=== PATIENT | male | born 1950 | race Caucasian/White ===

== ENCOUNTER 2021-06-16 13:24 | Emergency (ER) | payer MEDICARE, SELFPAY ==
[2021-06-16 13:26] VITALS: BP 105/77; PULSE 110; RESP 12; TEMP 35.9; O2SAT 96; BMI 28.1
--- NOTE | 2021-06-16 13:30 | EKG12_ITS ---
Test Reason : SYNCOPE Blood Pressure : / mmHG Vent. Rate : 108 BPM Atrial Rate : 108 BPM P-R Int : 150 ms QRS Dur : 102 ms QT Int : 334 ms P-R-T Axes : 065 058 041 degrees QTc Int : 447 ms Sinus tachycardia with occasional Premature ventricular complexes Otherwise normal ECG Confirmed by HAMIDA REYES, KAREN ([id number]), editor department TOSHIA GAMBOA ([id number]) on 06/18/2021 9:45:13 AM Referred By: GIANNI/ARAM Confirmed By:KAREN MEI MD
--- NOTE | 2021-06-16 14:48 | RAD_ITS ---
STUDY: X-RAY - RIGHT FOOT CLINICAL: Male, 70 years old. Fall, injury TECHNIQUE: 3 view(s) of the foot. COMPARISON: None. FINDINGS: There is abnormal alignment between the tarsal and metatarsal rows. There is unusual overlap. There is irregular appearance of the second and third proximal metatarsals. RAD/Foot min 3 Views IMPRESSION: 1. 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 Acute or subacute injury/fracture. Refer to definitive imaging with CT and orthopedic evaluation. Electronically Signed: Charis Foy MD at 16:31 EDT Tel , Service support ,
--- NOTE | 2021-06-16 14:49 | RAD_ITS ---
STUDY: X-RAY CHEST REASON FOR EXAM: Male, 70 years old. Syncope dizziness TECHNIQUE: Frontal and lateral views of the chest COMPARISON: None. FINDINGS: The lungs are clear and expanded. There is no demonstrated pleural abnormality. Normal size heart. Normal mediastinum and radha. Normal visualized pulmonary arteries. Normal visualized aortic arch and descending thoracic aorta. Normal visualized thoracic spine. Normal visualized ribs, clavicles, and shoulders. There is no demonstrated abnormality of the visualized soft tissue structures of the upper abdomen. RAD/Chest PA and Lateral IMPRESSION: Normal x-ray examination of the chest. Electronically Signed: Charis Foy MD at 16:36 EDT Tel , Service support ,
[2021-06-16 15:06] LABS: Absolute Lymphocyte Count 3.75 X10^3/uL (0.83-4.51); Absolute Neutrophil Count 9.8 X10^3/uL (2.0-7.7); Basophil# 0.09 X10^3/uL; Basophil% 0.6 % (0-1); Eosinophil# 0.22 X10^3/uL; Eosinophils% 1.5 % (0-5); Hematocrit 43.8 % (40-54); Hemoglobin 15.2 g/dL (13.0-16.5); Lymphocyte # 3.75 X10^3/ul (0.83-4.51); Lymphocyte % 25.4 % (19-41); Mean Corp Hgb Conc 34.7 g/dL (32-36); Mean Corpuscular Hgb 29.8 pg (27.0-32.0); Mean Corpuscular Volume 85.9 fL (80-94); Mean Platelet Vol. 10.7 fl (6.2-12.0); Monocyte# 0.74 X10^3/uL; NRBC Flagged by Analyzer 0 % (0-5); Neutrophil # 9.83 X10^3/uL (2.7-7.7); Neutrophil % 66.7 % (47-70); Platelet Count 232 K/mm3 (150-450); RBC Distribution Width CV 12.5 % (11.6-14.6); White Blood Count 14.8 K/mm3 (4.4-11.0)
[2021-06-16 15:20] LABS: Anion Gap 6 (5-15); BUN 21 mg/dL (7-18); BUN/Creat Ratio 11.5 RATIO (10-20); Calcium,Total 10.2 mg/dL (8.5-10.1); Chloride 104 mmol/L (98-107); Creatinine, Serum 1.83 mg/dL (0.70-1.30); EST Glomerular Filtration Rate 39 mL/min (>60); Est Glom Filt Rate - Afr Amer 47 mL/min (>60); Estimated Creatinine Clearance 42.45 ml/min; Glucose 152 mg/dL (74-106); Potassium 3.5 mmol/L (3.5-5.1); Sodium Level 135 mmol/L (136-145); Troponin-I HS 24.2 pg/mL (3.0-78.5)
[2021-06-16] MEDS: 0.9% Normal Saline 1,000 ML 1000 ML IV (15:21)
[2021-06-16 15:22] VITALS: BP 107/64; BP 107/65; BP 118/71; PULSE 103; PULSE 109; PULSE 133
--- NOTE | 2021-06-16 15:33 | EX.ED.DYSGE1 ---
HPI History of Present Illness Chief Complaint: Dizziness Informant: patient and family Narrative Narrative: Patient is a 70-year-old male with a past medical history of hypertension who presents to the emergency department for syncopal episode today. He states that he was out working and did not eat this morning. Whenever he got up from sitting he walked to the kitchen to make food. He felt very lightheaded and passing out. Family was present for this. They did help him to the ground. Patient did injure his right foot but did not strike his head. Family states this lasted for a total of 5 minutes. It has never had this happen before. He did not bite his tongue or cheek and did not become incontinent. He did feel lightheaded but denied any chest pain, shortness of breath or heart palpitations through any of this. Denies any recent illness including any fever/chills. He has not been nauseous, vomiting or having diarrhea. No urinary symptoms. No leg swelling or calf pain. At time of arrival his only complaint is right foot pain. He denies any lightheadedness, headache or vision changes at this time. No weakness or loss of sensation in any extremity. [facility] Medical History (Updated 06/16/21 @ 18:[address] Justo Hutson DO) Hypertension Home Medications aspirin 81 mg PO DAILY 06/16/21 [History Last Taken Unknown] diltiazem HCl [DILT-XR] 240 mg PO BID 06/16/21 [History Last Taken Unknown] losartan 100 mg PO DAILY 06/16/21 [History Last Taken Unknown] niacin 1,000 mg PO QHS 06/16/21 [History Last Taken Unknown] sildenafil 100 mg PO PRN PRN 06/16/21 [History Last Taken Unknown] terazosin 10 mg PO DAILY 06/16/21 [History Last Taken Unknown] Allergy/AdvReac Type Severity Reaction Status Date / Time No Known Allergies Allergy Verified 06/16/21 13:26 Social History Smoking Status: Current some day smoker tobacco type: cigarettes ROS ROS ED Constitutional Constitutional ED: Denies chills or fever(s) Eyes Eyes: Denies change in vision ENT ENT ED: Denies epistaxis or rhinorrhea Cardiovascular Cardiovascular: Denies chest pain or palpitations Respiratory/Chest Respiratory/Chest: Denies cough, dyspnea or dyspnea on exertion Gastrointestinal Gastrointestinal: Denies abdominal pain, diarrhea, nausea or vomiting Genitourinary Genitourinary ED: Denies dysuria, hematuria or urinary frequency Musculoskeletal Musculoskeletal: Denies back pain or neck pain Integumentary Denies rash Neurologic Neurologic: Denies dizziness, headache(s) or weakness EXAM Physical Exam Const Vital Signs: 06/16/21 13:26 06/16/21 13:30 06/16/21 15:22 Temperature 96.7 F L Temperature Source Temporal Pulse Rate 110 H Pulse Rate [Lying] 103 H Pulse Rate [Sitting] 109 H Pulse Rate [Standing] 133 H Respiratory Rate 12 Respiratory Effort Normal Non-Labored Respiratory Pattern Normal Blood Pressure 105/77 Blood Pressure [Lying] 107/65 Blood Pressure [Sitting] 118/71 Blood Pressure [Standing] 107/64 Blood Pressure Mean 86 Blood Pressure Mean [Lying] 79 Blood Pressure Mean [Sitting] 86 Blood Pressure Mean [Standing] 78 Pulse Ox 96 Oxygen Delivery Method Room Air 06/16/21 17:20 06/16/21 18:26 Temperature Temperature Source Pulse Rate 94 88 Pulse Rate [Lying] Pulse Rate [Sitting] Pulse Rate [Standing] Respiratory Rate 18 17 Respiratory Effort Respiratory Pattern Blood Pressure 137/81 H 133/74 H Blood Pressure [Lying] Blood Pressure [Sitting] Blood Pressure [Standing] Blood Pressure Mean 99 Blood Pressure Mean [Lying] Blood Pressure Mean [Sitting] Blood Pressure Mean [Standing] Pulse Ox 97 97 Oxygen Delivery Method Room Air Positive well nourished and well developed General Appearance ED: well developed and NAD HEENT Reports normocephalic, head/scalp atraumatic and moist mucous membranes Eyes PERRL and EOMs intact bilaterally Neck no lymphadenopathy and supple General: Negative for tenderness Chest Wall inspection of chest normal Resp normal respiratory effort and clear to auscultation bilaterally Auscultation: Negative for rales, rhonchi or wheezes Cardio regular rhythm and no murmurs Rate: tachycardic GI normal to inspection, nondistended, normoactive bowel sounds and non-tender Palpation: soft; Negative for guarding or rebound tenderness present Back/Spine no CVA tenderness Extremity Extremity Narrative: There does appear to be swelling, tenderness to right dorsal foot. Neurovascular intact. No tenderness over the ankle. Neuro oriented x3, CN's II-XII intact bilaterally and no sensory deficits noted Sensorium / Orientation: alert Motor Exam: strength 5/5 throughout Psych mental status grossly normal Skin no rashes or lesions noted MDM MDM MDM Narrative Medical decision making narrative: Patient presents to the emergency department for right foot pain. He also had a syncopal episode. On arrival to the emerge department he is tachycardic but otherwise normal vital signs. Will check EKG, chest x-ray, basic lab work. Patient's work-up for the syncopal episode did not reveal any significant acute abnormality. He does have a mild leukocytosis. His troponin is within normal limits. His creatinine is mildly elevated. His heart rate was high on arrival but with IV fluids it did return to the mid 90s. He is feeling much better. He is up ambulating around without putting pressure on the foot without difficulty. No repeat symptoms. He does well to be discharged home. X-ray of the foot did reveal possible fracture so CT scan was recommended. This was performed which showed significant fractures, subluxations and Lisfranc ligament injury. I did discuss the case with the on-call elementary school science teacher, Dr. Taylor. She recommended placing the patient in a splint and to have him call the office tomorrow for evaluation. He will likely need surgery. Patient was placed in a posterior Ortho-Glass splint. He is neurovascular intact pre and post splinting. Patient is to be nonweightbearing. He is given crutches. I did offer hospitalization given the syncopal episode but patient is adamant on wanting to go home. This time I have low concern for ACS, aortic catastrophe or PE. He is feeling much better after IV fluids and likely this is due to dehydration. Believe that this is an acceptable plan. He is to contact his PCP. If he develops any repeat lightheaded, syncope, chest pain, shortness of breath he needs to return back to the ED immediately for further evaluation. Lab Data Labs: Laboratory Results - last 24 hr 06/16/21 06/16/21 13:37 13:37 WBC 14.8 H RBC 5.10 Hgb 15.2 Hct 43.8 MCV 85.9 MCH 29.8 MCHC 34.7 RDW Std Deviation 39.0 RDW Coeff of Nikolas 12.5 Plt Count 232 MPV 10.7 Immature Gran % (Auto) 0.800 Neut % (Auto) 66.7 Lymph % (Auto) 25.4 [place] % (Auto) 5.0 Eos % (Auto) 1.5 Baso % (Auto) 0.6 Absolute Neuts (auto) 9.8 H Absolute Lymphs (auto) 3.75 Nucleated RBC % 0 Sodium 135 L Potassium 3.5 Chloride 104 Carbon Dioxide 25.0 Anion Gap 6 BUN 21 H Creatinine 1.83 H Estim Creat Clear Calc 42.45 Est GFR (MDRD) Af Amer 47 L Est GFR (MDRD) Non-Af 39 L BUN/Creatinine Ratio 11.5 Glucose 152 H Calcium 10.2 H Troponin I High Sens 24.2 Radiography Diagnostic Testing: Radiology Impression Foot X-Ray 06/16/21 14:48 IMPRESSION: 1. 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 Acute or subacute injury/fracture. Refer to definitive imaging with CT and orthopedic evaluation. Electronically Signed: Charis Foy MD at 16:31 EDT Tel , Service support , Chest X-Ray 06/16/21 14:49 IMPRESSION: Normal x-ray examination of the chest. Electronically Signed: Charis Foy MD at 16:36 EDT Tel , Service support , Lower Extremity CT 06/16/21 16:38 IMPRESSION: 1. Second-fourth metatarsal base fractures with articular surface involvement. 2. First tarsal-metatarsal articulation subluxation. 3. Lateral subluxation of the third tarsal-metatarsal articulation. 4. High likelihood of Lisfranc ligament injury. 5. Nondisplaced (lateral) cuboid fracture. Electronically Signed: Mil Clay MD ([place]) at 17:17 EDT , Service support , Chest x-ray clear without any acute cardiopulmonary abnormality. Interpreted by myself. Agree with radiologist interpretation. EKG Initial EKG: Attestation: I personally reviewed and interpreted this EKG as follows: (Rate of 108 bpm in sinus tachycardia. 1 PVC present. Otherwise normal intervals. Normal axis. No significant ST elevations or depressions. No T wave abnormalities.) Discharge Plan Triage Chief Complaint: Dizziness ED Provider: Justo Hutson Dx/Rx/DC Orders Clinical Impression: Foot fracture, Subluxation of foot joint, Lisfranc fracture, Episode of syncope Instructions: ED Fracture, Foot, ED Hypotension, Orthostatic Prescriptions: No Action niacin 1,000 mg Tablet Extended Release 24 Hr 1,000 mg PO QHS RF: 0 diltiazem HCl [DILT-XR] 240 mg Capsule,Ext.Rel 24h Degradable 240 mg PO BID RF: 0 sildenafil 100 mg Tablet 100 mg PO PRN PRN (Reason: Erectile Dysfunction) RF: 0 terazosin 10 mg Tablet 10 mg PO DAILY RF: 0 aspirin 81 mg Tablet 81 mg PO DAILY RF: 0 losartan 100 mg Tablet 100 mg PO DAILY RF: 0 Primary Care Provider: Terrance Cee Referrals: Terrance Cee DO [Primary Care Provider] - 1 Day Felicity Taylor DPM [STAFF PHYSICIAN] - 1 Day Disposition Disposition: Home, Self Care Discharge Date/Time: 06/16/21 18:38
--- NOTE | 2021-06-16 16:38 | CT_ITS ---
STUDY: CT RIGHT FOOT REASON FOR EXAM: Male, 70 years old. Abnormal foot XR RADIATION DOSAGE (If Supplied By Facility): CTDIvol = ( 15.35 ) mGy, DLP = ( 434.36 ) mGycm TECHNIQUE: Thin section transaxial imaging of the foot was obtained, with sagittal and coronal reconstructed images. Individualized dose optimization techniques were used for this CT. COMPARISON: Today FINDINGS: Nondisplaced fracture along the lateral cuboid identified on image 20 of series 601. There is anterior subluxation of the medial cuneiform in relation to the first metatarsal (8 mm image 33 series 601). Tiny osseous densities are adjacent to the base of the first metatarsal (same image). Mildly comminuted fracture at the base of the second metatarsal with intra-articular involvement. Small fracture fragment between the first and second metatarsals (image 50 series 3). There is also a tiny fracture along the plantar surface of the third metatarsal base (image 57 series 3, image 25 series 601). An obliquely oriented fracture of the medial fourth metatarsal base extends to the articular surface with approximately 2.6 mm of displacement (image 52 series 602). Lateral subluxation of the third metatarsal in relation to the middle cuneiform (4 mm image 20 series 601). Normal metatarsophalangeal joint of the great toe. Normal tibial and fibular sesamoid bones. Normal interphalangeal joint of the great toe. Normal phalanges of the great toe. Normal second through fifth metatarsophalangeal joints. Normal interphalangeal joints and phalanges of the lesser toes. Soft tissue swelling particularly over the dorsal foot overlying the fractures. CT/Extremity Lower without Contra IMPRESSION: 1. Second-fourth metatarsal base fractures with articular surface involvement. 2. First tarsal-metatarsal articulation subluxation. 3. Lateral subluxation of the third tarsal-metatarsal articulation. 4. High likelihood of Lisfranc ligament injury. 5. Nondisplaced (lateral) cuboid fracture. Electronically Signed: Mil Clay MD ([place]) at 17:17 EDT , Service support ,
[2021-06-16 17:20] VITALS: BP 137/81; PULSE 94; RESP 18; O2SAT 97
[2021-06-16 18:26] VITALS: BP 133/74; PULSE 88; RESP 17; O2SAT 97
== END 2021-06-16 18:38 | disposition home or self-care (01) ==
PROVIDERS: Emergency Provider Emergency Medicine; PCP Family Medicine
DX: S92.321A Displaced fracture of second metatarsal bone, right foot, initial encounter for closed fracture (principal); S92.331A Displaced fracture of third metatarsal bone, right foot, initial encounter for closed fracture; S92.341A Displaced fracture of fourth metatarsal bone, right foot, initial encounter for closed fracture; S93.321A Subluxation of tarsometatarsal joint of right foot, initial encounter; R55 Syncope and collapse; W19.XXXA Unspecified fall, initial encounter; Y93.9 Activity, unspecified; Y92.9 Unspecified place or not applicable; I49.3 Ventricular premature depolarization; I10 Essential (primary) hypertension; Z79.82 Long term (current) use of aspirin; Z79.899 Other long term (current) drug therapy; F17.210 Nicotine dependence, cigarettes, uncomplicated
CPT/HCPCS: 29515; 71046; 73630; 73700; 80048; 84484; 85025; 93005; 96360; 96361; 99285; J7030; A4216

== ENCOUNTER → 2021-07-08 16:42 | Outpatient (CLI) | payer MEDICARE, SELFPAY ==
[2021-06-16 13:26] VITALS: BMI 28.1
[2021-07-08 18:04] LABS: Absolute Lymphocyte Count 2.78 X10^3/uL (0.83-4.51); Absolute Neutrophil Count 9.7 X10^3/uL (2.0-7.7); Basophil# 0.07 X10^3/uL; Basophil% 0.5 % (0-1); Eosinophil# 0.24 X10^3/uL; Eosinophils% 1.7 % (0-5); Hematocrit 42.6 % (40-54); Hemoglobin 14.6 g/dL (13.0-16.5); Lymphocyte # 2.78 X10^3/ul (0.83-4.51); Lymphocyte % 20.2 % (19-41); Mean Corp Hgb Conc 34.3 g/dL (32-36); Mean Corpuscular Hgb 29.3 pg (27.0-32.0); Mean Corpuscular Volume 85.5 fL (80-94); Mean Platelet Vol. 10.3 fl (6.2-12.0); Monocyte# 0.76 X10^3/uL; Monocyte% 5.5 % (0-10); NRBC Flagged by Analyzer 0 % (0-5); Neutrophil # 9.69 X10^3/uL (2.7-7.7); Neutrophil % 70.6 % (47-70); Platelet Count 274 K/mm3 (150-450); RBC Distribution Width CV 12.6 % (11.6-14.6); RBC Distribution Width SD 38.8 fl (35.1-43.9); Red Blood Count 4.98 M/mm3 (4.6-6.2); White Blood Count 13.7 K/mm3 (4.4-11.0)
[2021-07-08 18:31] LABS: ALB/GLOB Ratio 0.8 RATIO (0.9-2.4); AST(SGOT) 16 U/L (15-37); Alanine Aminotransfer ALT/SGPT 42 U/L (16-61); Albumin, Serum 3.6 g/dL (3.2-5.0); Alkaline Phosphatase 100 U/L (45-117); Anion Gap 9 (5-15); BUN 22 mg/dL (7-18); BUN/Creat Ratio 16.5 RATIO (10-20); Calcium,Total 10.1 mg/dL (8.5-10.1); Chloride 100 mmol/L (98-107); Creatinine, Serum 1.33 mg/dL (0.70-1.30); EST Glomerular Filtration Rate 56 mL/min (>60); Est Glom Filt Rate - Afr Amer 68 mL/min (>60); Globulin 4.6 g/dL (2.2-4.2); Glucose 108 mg/dL (74-106); Potassium 3.7 mmol/L (3.5-5.1); Protein, Total 8.2 g/dL (6.4-8.2); Sodium Level 133 mmol/L (136-145)
== END ==
PROVIDERS: PCP Family Medicine; Referring Provider Family Medicine; Visit Provider Family Medicine
DX: Z01.818 Encounter for other preprocedural examination (principal)
CPT/HCPCS: 36415; 80053; 85025

== ENCOUNTER → 2021-07-19 06:11 | Outpatient (CLI) | payer MEDICARE, SELFPAY ==
--- NOTE | 2021-07-19 14:43 | STRESSREP ---
Stress Test Report From a allergic myocardial perfusion stress test. 70-year-old man with a history of syncope for preoperative evaluation for foot surgery. Stress protocol: Resting EKG demonstrates normal sinus rhythm with a rate of 80 bpm normal intervals are noted resting blood pressure is 138/82 mmHg. 0.4 mg of regadenoson was infused per usual protocol followed by rapid intravenous saline flush injection continuous EKG monitoring was performed. The maximum heart rate was 95 bpm which was 63% of maximum predicted heart rate the maximum workload was 1 metabolic equivalent. At rest there were no ST or T wave changes noted to suggest abnormal flow reserve and at peak infusion nonspecific ST changes were noted with did not meet the criteria for ischemia. No clinical angina was noted. The final blood pressure was 136/70 mmHg. Myocardial perfusion protocol. 10.0 mCi of technetium 99m sestamibi was injected at rest. 0.4 mg of regadenoson was infused per usual protocol and at peak infusion 33.0 mCi of technetium 99m sestamibi was injected stress images were obtained stress and rest images were reconstructed in comparing the short axis vertical long and horizontal long axis. Gated images were also obtained Perfusion SPECT analysis: Review of the stress images demonstrate normal uptake of tracer noted in all areas of the myocardium. The resting images also demonstrate normal uptake of tracer noted in all areas of the myocardium. No areas of reversibility are noted to suggest ischemia. No infarction is noted. Conclusion: Normal pharmacologic myocardial perfusion stress test. Preserved ejection fraction. Gated SPECT analysis: The gated ejection fraction is 69%
== END ==
PROVIDERS: PCP Family Medicine; Referring Provider Family Medicine; Visit Provider Family Medicine
DX: R55 Syncope and collapse (principal); R94.31 Abnormal electrocardiogram [ECG] [EKG]
CPT/HCPCS: 78452; 93017; A9500; A4216; J2785

== ENCOUNTER 2021-07-22 11:35 | Day surgery (SDC) | payer MEDICARE, SELFPAY ==
[2021-07-22 12:07] VITALS: BP 147/80; PULSE 94; RESP 16; TEMP 36.4; O2SAT 97; BMI 27.1
[2021-07-22] MEDS: Lactated Ringers 1,000 ML 100 ML IV ×2 (12:13→18:27)
[2021-07-22] MEDS: Bacitracin 500 UNITS/GM PACKET (12:33)
--- NOTE | 2021-07-22 12:43 | EX.PCM.DISCH ---
Discharge Instructions Diet Discharge Diet: No restrictions Activity Discharge Activity: Use Crutches and - (Or other assistive devices) Ice area for (Minutes): 15 Weight Bearing Status: No weight bearing Keep extremity elevated above heart level: Operative Extremity Additional Activity Instructions:: Rest, ice, elevate operative extremity Dressing / Incision Call your doctor if your incision/area has: Sudden Increased Bleeding, Increased Pain/ Swelling, Foul Smelling Discharge and Swelling at the incision site Call your doctor if you observe: Fever of 101 or Higher, Numbness or Tingling, Shortness of breath, Chest pain, Calf discomfort and Uncontrolled pain Change Dressing in: leave in place till F/U Remove Dressing in: do not remove dressing Cleanse incision/area with: Do not get Incision Wet Follow Up Care Please Follow Up With: Felicity Taylor DPM When: 1 week Test Results: Test results from this visit will be discussed in further detail at your follow-up appointment, if applicable. Discharge Plan Admission Primary Reason for Your Visit: Right foot fractures Attending Provider: Felicity Taylor Primary Care Provider: Terrance Cee Discharge Orders/Prescriptions Prescriptions: New ondansetron HCl [Zofran] 4 MG tablet 4 mg PO Q6H PRN PRN (Reason: Nausea) Qty: 14 RF: 1 oxycodone-acetaminophen 5-325 mg tablet 1 tab PO Q8H PRN (Reason: pain) 7 Days Qty: 28 RF: 0 Continued niacin 1,000 mg Tablet Extended Release 24 Hr 1,000 mg PO QHS RF: 0 diltiazem HCl [DILT-XR] 240 mg Capsule,Ext.Rel 24h Degradable 240 mg PO BID RF: 0 sildenafil 100 mg Tablet 100 mg PO PRN PRN (Reason: Erectile Dysfunction) RF: 0 terazosin 10 mg Tablet 10 mg PO DAILY RF: 0 aspirin 81 mg Tablet 81 mg PO DAILY RF: 0 losartan 100 mg Tablet 100 mg PO DAILY RF: 0 Other Ambulatory Orders: Durable Medical Equipment (Routine) Location: None Selected Ordered By: Dr. Felicity Taylor Referrals / Follow Up: Terrance Cee DO [Primary Care Provider] - Disposition Disposition (needs filled in before D/C Order can be placed): Home, Self Care
--- NOTE | 2021-07-22 12:49 | OP.PCM_ITS ---
Problems Associated Problem List Diagnoses (1) Foot fracture: (2) Subluxation of foot joint: (3) Dislocation of tarsometatarsal joint of right foot, initial encounter: (4) Displaced fracture of fourth metatarsal bone, right foot, initial encounter for closed fracture: Report of Operation Date of Procedure: 07/22/21 Pre-Operative Diagnosis: Right foot with metatarsal 2,3,4 fractures and Lisfranc fracture dislocation along with subluxation of tarsometatarsal joints Post-Operative Diagnosis: Same Surgery/Procedure Performed:: Open reduction internal fixation of 2nd tarsometatarsal joints right foot arthrodesis of 1st tarsometatarsal joint right foot Description of Surgical Findings:: Hemostasis: thigh tourniquet 300mmHg for 120min anesthesia Block: right popliteal and saphenous nerves per anesthesia Suture: 2-0, 3-0, 4-0 vicryl and 3-0, 4-0 nylon Materials: Arthrex- dynanite nitinol staple 18w x 15L and 15w x 15L, 2.4mm straight plate, 2.4mm kreulock screws 16mm x2 and 14mm length, 3.0mm cortical screw 20mm length, jumpstart dressing. DBX paste 1cc. Surgeon: Felicity Taylor supervisor patching: None (Sil Cannon PGY3 and Maikel Watts PGY3) Type of Anesthesia: Block,Regional and General Specimen's removed: none Estimated Blood Loss (mL): <100cc Description of Procedure: /INDICATIONS FOR OPERATION: Patient is a 70-year-old male who presented to the [facility] emergency department 06/16/21 after a syncopal episode. Patient was noted to have only injured his right foot in the fall. X-rays and CT were obtained in the Emergency department at that time showing significant trauma to his midfoot with multiple fractures and dislocations. He was splinted in a posterior splint at that time. Emergency room doctor did not feel he was able to reduce any of the subluxations at that time to a better position. No reduction attempt was made. Patient was seen in the office for further evaluation. Discussed with the patient need to go to surgery in order to reduce the misaligned joints and to stabilize the fractures. Discussed with the patient desire to wait for a week or so to go to surgery in order to allow for decrease in swelling and better soft tissue envelope and better healing outcomes. Discussed at that time reducing the fractures and dislocations and holding them in place with hardware. Patient was agreeable to these terms. Patient was unable to obtain medical surgical clearance including cardiac work- up with stress test until 07/19/2021. Patient was then able to be placed on the OR schedule for 07/22/2021. Discussed with the patient preoperatively that given the extra time from injury that there may be some increase risk associated with the procedure including increased surgical time as well as possibility for needing to fuse the joints or rebreak bones if they have healed in the wrong position. Patient understands and agrees to the additional surgical possibilities. Patient was seen and surgical intervention was discussed with the patient. Dis cussed risk of COVID-19 exposure in a healthcare setting. Discussed all risks, benefits, alternatives, and complications including but not limited to infection delayed healing nonhealing need for further surgery with the patient. Patient aware that he is at high risk for arthritis. Patient is aware that there is possibility that hardware may need to be removed at a later time. No guarantees were given or implied. Patient agreed to proceed with the procedure. All questions answered. Patient is noted to have crutches and a walker at home in order to remain nonweightbearing. Discussed using aspirin for DVT control with patient. Patient understands and agrees with current treatment plan. DESCRIPTION OF OPERATION: The patient was brought to the operating room and laid supine on the operating room table. General anesthesia was established. A thigh tourniquet was applied to the operative extremity. All bony prominences were well padded. The operative foot and leg were then prepped and draped in the usual fashion. The limb was exsanguinated and tourniquet inflated to 300 mmHg. Attention was then directed to the dorsal and medial aspect of the patient's foot. Closed reduction was attempted and was noted that the joints are rather stiff and was no movement was obtained. Under C arm guidance incisions were drawn out to the dorsal medial aspect of the first metatarsocuneiform joint as well as to the lateral aspect of the second metatarsocuneiform joint. There is noted to be a skin bridge greater than 2 cm between plan incision sites to decrease chance of necrosis. The dorsalis pedis artery was also identified prior to tourniquet inflation and was noted to not be within planned incision sites. A #15 blade was then utilized to carry out the incision in a layered fashion through the skin and subcutaneous layers down to the level of bone with all vital neurovascular structures and tendons retracted or cauterized as necessary. Upon identification of the first metatarsocuneiform joint it was noted that the bones are subluxed with dorsal and medial displacement of the medial cuneiform and plantar and lateral displacement to the 1st metatarsal. They did not reduce with manual attempts. Soft tissue structures were freed up from all aspects of the joint in order to try to allow reduction. The bones still did not want to reduce into their normal anatomic positioning. It was decided to carry out the dorsal second metatarsal incision at this time to see if any soft tissue impingement was happening from a different viewpoint and preventing reduction of the first TMTJ. A #15 blade was then utilized to carry out the incision through epidural and dural layers into the subcutaneous tissue with all vital neurovascular structures retracted or cauterized as necessary at the previously marked spot. The incision was deepened down to level of bone with all tendons retracted as necessary. The second metatarsocuneiform joint was identified and it was noted that the 2nd metatarsal was displaced laterally on the cuneiform. Even after freeing up the lateral side of the midtarsal joints good anatomic reduction of the first metatarsal cuneiform joint was unable to be obtained. It was decided that good anatomic alignment would best be obtained by joint resection and fusion of the first metatarsocuneiform joint. Sagittal saw was then introduced in order to remove the cartilage from the base of the first metatarsal and distal aspect of the medial cuneiform. There is also noted to be a bony ledge to the lateral aspect of the joint at the intermediate cuneiform that was preventing the first cuneiform from reducing. This was resected and the first metatarsal cuneiform joint was thus able to be better aligned. Once this was accomplished it was noted that the bones fell into more desired anatomic positioning. There was some dorsal spurring noted at this joint. Upon examination of the contralateral limb showing a dorsal exostosis at this level this was most likely present prior to his injury. The dorsal exostosis was removed with a sagittal saw in order to obtain a more flat joint surface to allow for better fixation. The site was flushed with copious amounts of normal sterile saline. The first metatarsocuneiform joint prepped with subchondral drilling with a K wire and insertion of DBX bone matrix into the site prior to being temporally fixated with a K wire. 2 tasia were then placed on the dorsal medial aspect and lateral aspect of the joint in order to hold it in place. This was accomplished following manufacture guidelines. Good compression was noted across the osteotomy site. Positioning of the joint was confirmed under C-arm fluoroscopy and noted to have good alignment with rastafarian of anatomy. The 2nd metatarsal intermediate cuneiform was manully reduced and a K wire was placed across the second metatarsal and intermediate cuneiform joint in order to maintain joint alignment. It was noted that once this was accomplished that the third and fourth metatarsals reduced into a more correct anatomic alignment. There is also noted that fractures noted on CT on 06/16/2021 were not visualized and some initial healing is noted to have taken place. This bone is still weak so it was decided that upon stabilization of the second tarsometatarsal joint that a plating option would best serve the patient to extend past where the comminuted fractures were noted on initial CT scan in order to have good bone purchase. Appropriately sized plate was then placed over the joint with positioning confirmed under C-arm guidance. Screws were placed into plate according to standard AO technique into the plate with good fixation noted. Screw sizes are noted above. The K wire was removed and reduction was maintai huma. This was all confirmed under C arm fluoroscopy in multiple views with maintenance of joint reduction maintained. The foot was then stressed and evaluated under C arm fluroscopy and was noted th at there was no gapping noted at the Lisfranc joint and no dislocation or subluxing of any midtarsal joints. It was determined that there was no need for further fixation for stabilization across these joints. It was also decided that fracture positioning was well maintained and no need for fixation was needed to 3/4 metatarsals or their relationship to the tarsal bones An arthrex in store representative was present for placement and insertion of the plate and screws. All incision sites were then flushed with copious amounts of normal sterile saline. The incisions were then closed in layers using 2-0, 3-0, 4-0 vicryl and 3-0 and 4-0 nylon sutures. The incisions had adaquate coverage of hardware achieved in simple and running suture fashion for capsular deep closure before continuing to more superficial layers with running suture fashion in the subcutaneous layer and simple and horizontal fashion for skin. A sterile compressive dressing was applied with jumpstart Arthrex wound dressing, 4 x 4's, ABDs, Kerlix, cast padding and then a posterior splint applied and secured down with an Jorge wrap with particular attention directed to padding all bony prominences. The tourniquet was deflated. Prompt brisk hyperemic response was noted to all digits of the patient's operative foot. The patient tolerated the procedure well. Patient was transferred to PACU with vital signs stable and vital signs intact. The popliteal block was administered after surgery to the operative limb per anesthesia. Patient will be discharged with the following written and oral post operative instructions 1. Patient to keep dressing clean, dry, and intact 2. Patient to ice and elevate operative foot 3. Pt to take prescribed medication as instructed. Prescription for Percocet and Zofran was given to the patient along with a prescription for knee scooter. Patient to take aspirin for DVT control. 4. Patient to remain NWB to operative foot in posterior splint 5. Patient to follow up in one week with Dr. Taylor 6. Patient to watch for increase in redness, swelling, drainage, signs of infection or DVT and instructed to present to doctor's office or go to ED if these symptoms present. Complications none Admit VTE Documentation VTE Present on Admission: Yes VTE Mechan Device Prophylaxis: SCD's Reason prophylaxis not ordered:: Treatment Not Indicated
--- NOTE | 2021-07-22 13:00 | RAD_ITS ---
STUDY: X-RAY - RIGHT FOOT CLINICAL: Male, 70 years old. ORIF metatarsal 2nd, 3rd, and 4th Other Info AU TECHNIQUE: 8 fluoroscopic view(s) of the foot. COMPARISON: Right foot x-ray dated June 16, 2021 FINDINGS: The images shows surgical instrumentation with subsequent placement of cortical plate screw constructs and large tasia across the second TMT articulation and first TMT articulation respectively. RAD/Foot min 3 Views IMPRESSION: Status post hardware fixation as above Electronically Signed: Raleigh Fernandez MD at 16:39 EDT , Service support ,
[2021-07-22 16:43] VITALS: BP 123/88; BP 147/80; PULSE 82; RESP 16; TEMP 36.4; O2SAT 96
--- NOTE | 2021-07-22 16:50 | RAD_ITS ---
STUDY: X-RAY - RIGHT FOOT CLINICAL: Male, 70 years old. post op TECHNIQUE: 3 view(s) of the foot. COMPARISON: June 16, 2021 FINDINGS: New cortical plate-screw construct is present across the dorsum of the the second TMT articulation. 2 new large tasia are present across the first TMT articulation. Bandage material is seen around the foot. The remaining structures are stable. Normal talus, calcaneus, and tarsal bones. Normal visualized subtalar, talonavicular, calcaneocuboid, tarsal and tarsometatarsal articulations. RAD/Foot min 3 Views IMPRESSION: Status post hardware fixation Electronically Signed: Raleigh Fernandez MD at 19:00 EDT , Service support ,
[2021-07-22 17:01] VITALS: BP 104/65; BP 147/80; PULSE 80; RESP 16; O2SAT 96
[2021-07-22 17:19] VITALS: BP 147/80
[2021-07-22 17:20] VITALS: BP 102/71; BP 147/80; PULSE 75; RESP 16; TEMP 36.1; O2SAT 98
[2021-07-22 18:54] VITALS: BP 136/79; BP 147/80; PULSE 82; RESP 16; TEMP 36.6; O2SAT 97
== END 2021-07-22 18:57 ==
LOC: SDC 11:36 → AC 11:39
PROVIDERS: PCP Family Medicine; Visit Provider Podiatrist Foot & Ankle Surgery
PROC: (CPT 28485; principal; 2021-07-22 12:40)
DX: S92.341A Displaced fracture of fourth metatarsal bone, right foot, initial encounter for closed fracture (principal); S93.324A Dislocation of tarsometatarsal joint of right foot, initial encounter; S93.301A Unspecified subluxation of right foot, initial encounter; X58.XXXA Exposure to other specified factors, initial encounter; I10 Essential (primary) hypertension; Z79.899 Other long term (current) drug therapy
CPT/HCPCS: 01480; 28485; 28740; 73630; 76000; C1713; J7120; J2405

== ENCOUNTER → 2021-10-28 10:19 | Outpatient (CLI) | payer MEDICARE, SELFPAY ==
[2021-10-28 11:46] LABS: Vitamin D,25 Hydroxy 20.4 ng/mL
== END ==
PROVIDERS: PCP Family Medicine; Referring Provider Podiatrist; Visit Provider Podiatrist
DX: E55.9 Vitamin D deficiency, unspecified (principal)
CPT/HCPCS: 36415; 82306

== ENCOUNTER 2023-07-22 19:12 | Inpatient (IN) | payer MEDICARE, SELFPAY ==
[2023-07-22 19:14] VITALS: BP 112/64; PULSE 98; RESP 16; TEMP 36.7; O2SAT 100; BMI 20.8
--- NOTE | 2023-07-22 19:37 | CT_ITS ---
STUDY: CT ABDOMEN AND PELVIS WITHOUT CONTRAST REASON FOR EXAM: Male, 72 years old. weight loss, abdominal pain RADIATION DOSAGE (If Supplied By Facility): CTDIvol = ( 6.78 ) mGy, DLP = ( 350.73 ) mGycm TECHNIQUE: Transaxial images were obtained from the dome of the diaphragm to the symphysis pubis without oral contrast, and without intravenous contrast. Sagittal and coronal images were reconstructed. Individualized dose optimization techniques were used for this CT. COMPARISON: None. FINDINGS: The visualized lung bases are unremarkable. The visualized portions of the heart are within normal limits. Normal liver. There is a solitary gallstone. Normal spleen. Normal pancreas. There is symmetric enlargement of the adrenal glands suggesting adrenal hyperplasia. Normal right kidney. Normal left kidney. Bilateral renal cysts. Wall thickening of the antrum of the stomach and the duodenal bulb worrisome for inflammation or mass. Correlation with endoscopy is recommended. Normal small intestine. Normal colon. The appendix is visualized and appears normal. There is diffuse atherosclerotic calcification of the abdominal aorta, without a demonstrated aneurysm. Normal inferior vena cava. Normal retroperitoneum. Normal urinary bladder. Normal abdominal wall. Mild dextroscoliosis lumbar spine with degenerative disc disease. Ankylosis of the sacroiliac joints. CT/Abdomen/Pel W ORAL Cont Only IMPRESSION: 1. Possible gastritis and duodenitis or mass. Correlation with endoscopy is recommended. 2. Cholelithiasis. 3. Bilateral renal cysts. Electronically Signed: Reji Graham MD at 22:15 EDT ,
--- NOTE | 2023-07-22 19:38 | EDS_ITS ---
HPI History of Present Illness Chief Complaint: General Illness Detail of Chief Complaint: With weight loss, hypotension, dehydration Informant: patient and PCP Narrative Narrative: Patient presents to the emergency department with his spouse at the request of his primary care physician. Patient tells me he was seen by his primary care physician yesterday as he is normally seen every 3 months for hypertension. In the office yesterday's blood pressure was 90/60 and he was taken off some of his blood pressure medicine. Patient also had lost 50 pounds in the last 6 months unintentionally. PCP called to ER and was concerned that patient may have a malignancy and asked that we obtain a CT scan of the abdomen pelvis. Patient also is a smoker. Patient does have a family history of colon cancer and that his father had colon cancer in his 70s. Patient states that he just did a Cologuard test and got his results yesterday and they were negative. Patient has intermittent abdominal discomfort but none currently. Patient denies blood in his stool or black tarry stool. Patient's blood work from yesterday was noted that he had acute kidney injury with an elevated creatinine and his PCP thought patient would require some fluids as well. [facility] Medical History (Updated 07/22/23 @ 22:[address] Jammie López DO) Hypertension Walker as ambulation aid Wears dentures Home Medications diltiazem HCl 240 mg capsule,extended release 24 hr, controlled (DILT-XR) 240 mg PO BID 06/16/21 [History Last Taken 07/22/21] losartan 100 mg tablet 50 mg PO DAILY 06/16/21 [History Last Taken 07/22/21] niacin 1,000 mg tablet,extended release 24 hr 1,000 mg PO QHS 06/16/21 [History Last Taken Unknown] Allergy/AdvReac Type Severity Reaction Status Date / Time No Known Allergies Allergy Verified 07/22/23 19:16 Social History Smoking Status: Current every day smoker tobacco type: cigarettes ROS ROS ED Review of Systems ROS Unobtainable: other Constitutional Constitutional ED: Reports lethargy; Denies chills, fever(s), sweats or weight loss Eyes Eyes: Denies blurry vision, change in vision or diplopia ENT ENT ED: Denies rhinorrhea or sore throat Cardiovascular Cardiovascular: Denies chest pain, orthopnea or racing heartbeat Respiratory/Chest Respiratory/Chest: Denies cough, dyspnea, dyspnea on exertion, orthopnea or sputum Gastrointestinal Gastrointestinal: Reports abdominal pain and other Details: Weight loss ; Denies diarrhea, nausea or vomiting Genitourinary Genitourinary ED: Denies dysuria, hematuria or urinary frequency Musculoskeletal Musculoskeletal: Denies arthralgias, back pain, myalgias or neck pain Integumentary Denies abscess, Abrasions or rash Neurologic Neurologic: Denies headache(s) or weakness Psychiatric Psychiatric: Denies anxiety, depression or suicidal thoughts Endocrine Endocrinology: Denies polydipsia, polyphagia or polyuria Hematologic/Lymphatic Hematologic/Lymphatic: Denies easy bleeding, easy bruising or lymphadenopathy Allergic/Immunologic Allergic/Immunologic ED: Denies mouth swelling, tongue swelling or urticaria EXAM Physical Exam Const Vital Signs: 07/22/23 19:14 07/22/23 19:26 07/22/23 21:13 Temperature 98.0 F Temperature Source Temporal Pulse Rate 98 Respiratory Rate 16 16 Respiratory Effort Normal Respiratory Pattern Normal Blood Pressure 112/64 Blood Pressure Mean 80 Pulse Ox 100 Oxygen Delivery Method Room Air Room Air Positive well nourished and well developed General Appearance ED: well developed and NAD HEENT Reports TM's clear and moist mucous membranes normocephalic and atraumatic; Negative for trauma or tenderness Tympanic Membrane ED: Yes TM's clear Eyes PERRL and EOMs intact bilaterally General Eye ED: Negative for pale conjunctiva or scleral icterus Neck no lymphadenopathy, supple and no JVD General: Negative for tenderness Chest Wall inspection of chest normal and palpation of chest normal Chest: Negative for tenderness Resp normal respiratory effort and clear to auscultation bilaterally Effort and Inspection: Negative for respiratory distress or pain with movement Auscultation: Negative for rhonchi, wheezes or diminished lung sounds Cardio regular rate, regular rhythm, S1 normal heart sound, S2 normal heart sound and no murmurs Peripheral Pulses: pulses 2+ throughout GI normal to inspection, nondistended, normoactive bowel sounds, soft to palpation, non-tender, non-distended and no masses Back/Spine no CVA tenderness and no thoracic nor lumbar tenderness Extremity normal to inspection General Extremety ED: Negative for edema General Extremity: Negative for edema Neuro oriented x3, CN's II-XII intact bilaterally, no sensory deficits noted and gait normal Sensorium / Orientation: awake, alert, oriented to person, oriented to place and oriented to time Motor Exam: strength 5/5 throughout and strength abnormal Psych mental status grossly normal Skin no rashes or lesions noted and no wounds MDM MDM MDM Narrative Medical decision making narrative: Patient presents with excessive weight loss over the last patient was found to be hypotensive yesterday in his primary care physician's office and his blood pressure medication was discontinued. On presentation to the ER his systolic is 120. Given his unexpected weight loss there was concern by his PCP for malignancy potentially in recommended obtaining a CT scan of the abdomen pelvis. IV line established. CBC with differential obtained showed a white count of 17.4 with platelet count 12.5 and platelet count of 367. Santosh's were unrem arkable. BUN was 86 and creatinine 2.11. LFTs unremarkable. Potassium was slightly depressed at 2.8 therefore 40 mEq of potassium chloride p.o. was given. Chest x-ray 1 view obtained showed no acute disease process on my interpretation. CT scan of the abdomen pelvis with p.o. contrast was ordered and was read by radiology as possible gastritis and duodenitis or mass and recommended correlation with endoscopy. Patient also had cholelithiasis. I did discuss findings with the patient and his . I spoke with legal services manager on-call Dr. Stone. It was recommended that we admit patient for further management and EGD tomorrow. I will discuss case with hospitalist to evaluate patient for admission. Patient leukocytosis appears to be chronic. Lab Data Attestation: I reviewed the patient's lab results. Labs: Laboratory Results - last 24 hr 07/22/23 19:25 WBC 17.4 H RBC 4.23 L Hgb 12.2 L Hct 36.8 L MCV 87.0 MCH 28.8 MCHC 33.2 RDW Std Deviation 45.4 H RDW Coeff of Nikolas 14.3 Plt Count 367 MPV 10.2 Immature Gran % (Auto) 0.900 Neut % (Auto) 82.3 H Lymph % (Auto) 11.6 L [place] % (Auto) 4.3 Eos % (Auto) 0.6 Baso % (Auto) 0.3 Absolute Neuts (auto) 14.3 H Absolute Lymphs (auto) 2.02 Nucleated RBC % 0 Sodium 133 L Potassium 2.8 L Chloride 91 L Carbon Dioxide 34.0 H Anion Gap 8 BUN 56 H Creatinine 2.11 H Estim Creat Clear Calc 32.08 Est GFR (MDRD) Af Amer 40 L Est GFR (MDRD) Non-Af 33 L BUN/Creatinine Ratio 26.5 H Glucose 149 H Calcium 11.1 H Total Bilirubin 0.40 AST 12 L ALT 21 Alkaline Phosphatase 105 Total Protein 8.5 H Albumin 3.4 Globulin 5.1 H Albumin/Globulin Ratio 0.7 L Radiography Diagnostic Testing: Clinical Impression(s) from Imaging Studies Abdomen CT 07/22/23 19:37 IMPRESSION: 1. Possible gastritis and duodenitis or mass. Correlation with endoscopy is recommended. 2. Cholelithiasis. 3. Bilateral renal cysts. Electronically Signed: Reji Graham MD at 22:15 EDT , Chest X-Ray 07/22/23 21:10 IMPRESSION: Normal x-ray examination of the chest. Electronically Signed: Reji Graham MD at 21:38 EDT , 1 view chest x-ray obtained interpreted by myself as no evidence of infiltrate or pneumothorax or acute disease process. Radiology in agreement. Discharge Plan Triage Chief Complaint: General Illness ED Provider: Jammie López Dx/Rx/DC Orders Clinical Impression: Abnormal weight loss, Acute renal insufficiency, Leukocytosis, Acute hypokalemia Prescriptions: No Action niacin 1,000 mg Tablet Extended Release 24 Hr 1,000 mg PO QHS diltiazem HCl [DILT-XR] 240 mg Capsule,Ext.Rel 24h Degradable 240 mg PO BID losartan 100 mg Tablet 50 mg PO DAILY Primary Care Provider: Terrance Cee Referrals: Terrance Cee DO [Primary Care Provider] - Disposition Disposition: [facility]
[2023-07-22 19:52] LABS: Absolute Lymphocyte Count 2.02 X10^3/uL (0.83-4.51); Absolute Neutrophil Count 14.3 X10^3/uL (2.0-7.7); Basophil# 0.05 X10^3/uL; Basophil% 0.3 % (0-1); Eosinophils% 0.6 % (0-5); Hematocrit 36.8 % (40-54); Hemoglobin 12.2 g/dL (13.0-16.5); Lymphocyte # 2.02 X10^3/ul (0.83-4.51); Lymphocyte % 11.6 % (19-41); Mean Corp Hgb Conc 33.2 g/dL (32-36); Mean Corpuscular Hgb 28.8 pg (27.0-32.0); Mean Platelet Vol. 10.2 fl (6.2-12.0); Monocyte# 0.75 X10^3/uL; Monocyte% 4.3 % (0-10); NRBC Flagged by Analyzer 0 % (0-5); Neutrophil # 14.34 X10^3/uL (2.7-7.7); Neutrophil % 82.3 % (47-70); Platelet Count 367 K/mm3 (150-450); RBC Distribution Width CV 14.3 % (11.6-14.6); RBC Distribution Width SD 45.4 fl (35.1-43.9); Red Blood Count 4.23 M/mm3 (4.6-6.2); White Blood Count 17.4 K/mm3 (4.4-11.0)
[2023-07-22] MEDS: 0.9% Normal Saline 1,000 ML 1000 ML IV (19:52)
[2023-07-22 20:15] LABS: ALB/GLOB Ratio 0.7 RATIO (0.9-2.4); AST(SGOT) 12 U/L (15-37); Alanine Aminotransfer ALT/SGPT 21 U/L (16-61); Albumin, Serum 3.4 g/dL (3.2-5.0); Alkaline Phosphatase 105 U/L (45-117); Anion Gap 8 (5-15); BUN 56 mg/dL (7-18); BUN/Creat Ratio 26.5 RATIO (10-20); Calcium,Total 11.1 mg/dL (8.5-10.1); Chloride 91 mmol/L (98-107); Creatinine, Serum 2.11 mg/dL (0.70-1.30); EST Glomerular Filtration Rate 33 mL/min (>60); Est Glom Filt Rate - Afr Amer 40 mL/min (>60); Estimated Creatinine Clearance 32.08 ml/min; Globulin 5.1 g/dL (2.2-4.2); Glucose 149 mg/dL (74-106); Potassium 2.8 mmol/L (3.5-5.1); Protein, Total 8.5 g/dL (6.4-8.2); Sodium Level 133 mmol/L (136-145)
--- NOTE | 2023-07-22 21:10 | RAD_ITS ---
STUDY: X-RAY CHEST REASON FOR EXAM: Male, 72 years old. weight loss, hypotension TECHNIQUE: PA and lateral views of the chest. COMPARISON: 06/16/2021 FINDINGS: The lungs are clear and expanded. There is no demonstrated pleural abnormality. Normal size heart. Normal mediastinum and radha. Normal visualized pulmonary arteries. Normal visualized aortic arch and descending thoracic aorta. Normal visualized thoracic spine. Normal visualized ribs, clavicles, and shoulders. There is no demonstrated abnormality of the visualized soft tissue structures of the upper abdomen. RAD/Chest PA and Lateral IMPRESSION: Normal x-ray examination of the chest. Electronically Signed: Reji Graham MD at 21:38 EDT ,
[2023-07-22 21:13] VITALS: RESP 16
[2023-07-22] MEDS: Potassium Chloride Oral Tablet 20 MEQ 40 MEQ PO (21:34)
[2023-07-22] MEDS: 0.9% Normal Saline 1,000 ML 150 ML IV (21:38)
[2023-07-22 23:19] VITALS: BP 127/79; PULSE 82; RESP 16; TEMP 36.3; O2SAT 98
--- NOTE | 2023-07-22 23:25 | PCM.HP.STD ---
HPI - General General Date of Admission: 07/22/23 Date of Service: 07/22/23 Chief Complaint: Abnormal outpatient laboratory work and weight loss HPI Narrative NICHOLAS VÁSQUEZ, is a 72 M with a significant history of hypertension who saw his PCP a day before presentation presenting to the emergency department because of abnormal outpatient laboratory work and weight loss. At office appointment with PCP for regular blood pressure follow-up patient's blood pressure was low so his hydralazine p.o. and terazosin was discontinued. He was continued on losartan and diltiazem. Lab work obtained returned with elevated creatinine so patient was sent to the emergency department. Patient PCP and ED doctor discussed case and patient PCP pointed that patient has also lost a considerable amount of weight without trying. Patient reports losing about 50 pounds weight in the past 1 year. He denies loss of appetite. He denies any melena or hematochezia. Recent Cologuard test was negative. Of note patient's father had colon cancer but he(Patient's father) was in his 70s. Patient reports nausea and vomiting after taking oral contrast. He denies any other symptoms otherwise. [facility] Medical History Hypertension Walker as ambulation aid Wears dentures Home Medications diltiazem HCl 240 mg capsule,extended release 24 hr, controlled (DILT-XR) 240 mg PO BID 06/16/21 [History Last Taken 07/22/23] losartan 100 mg tablet 50 mg PO DAILY 06/16/21 [History Last Taken 07/22/23] niacin 1,000 mg tablet,extended release 24 hr 1,000 mg PO QHS 06/16/21 [History Last Taken 07/21/23] Allergy/AdvReac Type Severity Reaction Status Date / Time No Known Allergies Allergy Verified 07/22/23 19:16 Family History Other CVA (cerebral vascular accident) Colon cancer Heart disease Surgical History History of foot surgery Social History Smoking Status: Current every day smoker tobacco type: cigarettes ROS ROS Narrative Pertinent positives and pertinent negatives as noted in HPI. All other systems were reviewed and are negative Vital Signs Vital Signs Vital Signs: 07/22/23 19:14 07/22/23 19:26 07/22/23 21:13 Temperature 98.0 F Temperature Source Temporal Pulse Rate 98 Respiratory Rate 16 16 Respiratory Effort Normal Respiratory Pattern Normal Blood Pressure 112/64 Blood Pressure Mean 80 Pulse Ox 100 Oxygen Delivery Method Room Air Room Air 07/22/23 23:19 07/22/23 23:19 Temperature 97.3 F L Temperature Source Temporal Pulse Rate 82 Respiratory Rate 16 16 Respiratory Effort Respiratory Pattern Blood Pressure 127/79 H Blood Pressure Mean 95 Pulse Ox 98 Oxygen Delivery Method Room Air Weight Weight: 71.668 kg Body Mass Index (BMI) 20.8 Physical Exam Narrative Physical exam: General: Well-nourished, well-developed. Head: Normocephalic, atraumatic, no tenderness Eyes: Vision is grossly intact. EOMI ENT, no trauma, moist mucous membranes, no rhinorrhea Neck: Nontender, No thyromegaly. CVS: Regular rate and rhythm. S1-S2 present. No murmur, gallop or rub. Respiratory : clear to auscultation bilaterally, chest wall nontender Abdomen: Soft, nontender, nondistended, normal bowel sounds, no masses : Deferred Back: Nontender, no CVA tenderness, no midline spinal tenderness, deformities, step-offs Extremities: Nontender full range of motion, no trauma Skin: Normal color, no trauma, abrasions Neuro: Alert, oriented, cranial nerves II through XII grossly intact. Psychiatry: Normal mood. Normal affect. Not depressed. Not anxious. Results Lab / Micro Data 07/22/23 19:25 07/22/23 19:25 Labs: Laboratory Results - last 24 hr 07/22/23 19:25: WBC 17.4 H, RBC 4.23 L, Hgb 12.2 L, Hct 36.8 L, MCV 87.0, MCH 28.8, MCHC 33.2, RDW Std Deviation 45.4 H, RDW Coeff of Nikolas 14.3, Plt Count 367, MPV 10.2, Immature Gran % (Auto) 0.900, Neut % (Auto) 82.3 H, Lymph % (Auto) 11.6 L, [place] % (Auto) 4.3, Eos % (Auto) 0.6, Baso % (Auto) 0.3, Absolute Neuts (auto) 14.3 H, Absolute Lymphs (auto) 2.02, Nucleated RBC % 0, Sodium 133 L, Potassium 2.8 L, Chloride 91 L, Carbon Dioxide 34.0 H, Anion Gap 8, BUN 56 H, Creatinine 2.11 H, Estim Creat Clear Calc 32.08, Est GFR (MDRD) Af Amer 40 L, Est GFR (MDRD) Non-Af 33 L, BUN/Creatinine Ratio 26.5 H, Glucose 149 H, Calcium 11.1 H, Total Bilirubin 0.40, AST 12 L, ALT 21, Alkaline Phosphatase 105, Total Protein 8.5 H, Albumin 3.4, Globulin 5.1 H, Albumin/Globulin Ratio 0.7 L Radiology Impression Abdomen CT 07/22/23 19:37 IMPRESSION: 1. Possible gastritis and duodenitis or mass. Correlation with endoscopy is recommended. 2. Cholelithiasis. 3. Bilateral renal cysts. Electronically Signed: Reji Graham MD at 22:15 EDT Reading Location ID and State: [phone] / [place] [employer] , Service support , Chest X-Ray 07/22/23 21:10 IMPRESSION: Normal x-ray examination of the chest. Electronically Signed: Reji Graham MD at 21:38 EDT Reading Location ID and State: [phone] / [place] [employer] , Service support , Assessment & Plan Assessment/Plan (1) Acute hypokalemia: (2) Acute renal insufficiency: (3) Abnormal weight loss: (4) Suspected malignant neoplasm: (5) Leukocytosis: QUALIFIERS: Leukocytosis type: unspecified Qualified Code(s): D72.829 - Elevated white blood cell count, unspecified PLAN: Plan Unintended weight loss/suspected malignancy Chest x-ray interpreted by radiologist and also interpreted by hospitalist: No acute cardiopulmonary process. Abdomen CT interpreted by radiologist as: 1. Possible gastritis and duodenitis or mass. Correlation with endoscopy is recommended. 2. Cholelithiasis. 3. Bilateral renal cysts. Abdomen CT was independently interpreted by hospitalist: Agrees. ED doctor discussed case with gastroenterology. Recommendation is to keep patient n.p.o. for possible EGD and scope in a.m. N.p.o. ordered. Discussed with patient. GI consult. 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 And on 06/16/2021 his creatinine was 1.83. Creatinine on admission was2.11. BUN is 56. BUN over creatinine is 26.5. Likely prerenal from dehydration. Gentle lactated Ringer's with 40 milliequivalent potassium ordered. Hold nephrotoxics Hypokalemia Potassium of 2.8 on presentation. Patient received 40 mill equivalent potassium in the ED. Lactated Ringer's with potassium supplementation ordered.Trend BMP. Leukocytosis White count of 17,400 on presentation. Likely reactive. Trend CBC. Hypertension Blood pressure is Stable. With patient being prepped for possible EGD in a.m. patient has been kept NPO. We will hold current home medicine of Cardizem and losartan. Of note losartan was even held secondary HAYDEE. Trend blood pressures. As needed hydralazine ordered. Adjust BP meds as necessary. Tobacco abuse Counseled Nicotine patch prescribed Insomnia and back pain Tylenol 1000 mg x 1 dose and Benadryl 50 mg x 1 ordered. DVT prophylaxis SCDs ordered Time spent in the patient's overall evaluation,decision-making process, review of diagnostic data, adjustment of management, discussion with other providers, nursing nursing and ancillary staff involved in patient's care documentation, 70 minutes. Charges/Coding Visit Charges Inpatient E&M: 41984 Init Hosp L3
--- NOTE | 2023-07-22 23:59 | CON.PCM.GI_ITS ---
HPI Consult Data Date of Consult: 07/22/23 HPI Narrative Reason for Consultation: Abnormal weight loss and abnormal imaging HPI Narrative: NICHOLAS VÁSQUEZ, is a 72 M who presents with few months of progressive fatigue, weakness and a recent episode with syncope due to hypotension. He arrives here today after seeing his PCP a day before presentation presenting to the emergency department because of abnormal outpatient laboratory work and weight loss. At office appointment with PCP for regular blood pressure follow-up patient's blood pressure was low so his hydralazine p.o. and terazosin was discontinued. He was continued on losartan and diltiazem. Lab work obtained returned with elevated creatinine so patient was sent to the emergency department. Patient PCP and ED doctor discussed case and patient PCP pointed that patient h as also lost a considerable amount of weight without trying. Patient reports losing about 50 pounds weight in the past 1 year. He denies loss of appetite. He denies any melena or hematochezia. Recent Cologuard test was negative. Of note patient's father had colon cancer but he(Patient's father) was in his 70s. CT scan of the abdomen displayed Wall thickening of the antrum of the stomach and the duodenal bulb worrisome for inflammation or mass. Correlation with endoscopy is recommended. I was consulted for endoscopic evaluation of abnormal CT scan. [facility] Medical History Hypertension Walker as ambulation aid Wears dentures Home Medications diltiazem HCl 240 mg capsule,extended release 24 hr, controlled (DILT-XR) 240 mg PO BID 06/16/21 [History Last Taken 07/22/23] losartan 100 mg tablet 50 mg PO DAILY 06/16/21 [History Last Taken 07/22/23] niacin 1,000 mg tablet,extended release 24 hr 1,000 mg PO QHS 06/16/21 [History Last Taken 07/21/23] Allergy/AdvReac Type Severity Reaction Status Date / Time No Known Allergies Allergy Verified 07/22/23 19:16 Family History Other CVA (cerebral vascular accident) Colon cancer Heart disease Surgical History History of foot surgery Social History Smoking Status: Current every day smoker tobacco type: cigarettes ROS ROS Narrative Pertinent positives and pertinent negatives as noted in HPI. All other systems were reviewed and are negative Physical Exam Narrative Physical exam: General: Well-nourished, well-developed. Head: Normocephalic, atraumatic, no tenderness Eyes: Vision is grossly intact. EOMI ENT, no trauma, moist mucous membranes, no rhinorrhea Neck: Nontender, No thyromegaly. CVS: Regular rate and rhythm. S1-S2 present. No murmur, gallop or rub. Respiratory : clear to auscultation bilaterally, chest wall nontender Abdomen: Soft, nontender, nondistended, normal bowel sounds, no masses : Deferred Back: Nontender, no CVA tenderness, no midline spinal tenderness, deformities, step-offs Extremities: Nontender full range of motion, no trauma Skin: Normal color, no trauma, abrasions Neuro: Alert, oriented, cranial nerves II through XII grossly intact. Psychiatry: Normal mood. Normal affect. Not depressed. Not anxious. Lab / Micro Data 07/23/23 06:35 07/23/23 06:35 Labs: Laboratory Results - last 24 hr 07/22/23 19:25: WBC 17.4 H, RBC 4.23 L, Hgb 12.2 L, Hct 36.8 L, MCV 87.0, MCH 28.8, MCHC 33.2, RDW Std Deviation 45.4 H, RDW Coeff of Nikolas 14.3, Plt Count 367, MPV 10.2, Immature Gran % (Auto) 0.900, Neut % (Auto) 82.3 H, Lymph % (Auto) 11.6 L, [place] % (Auto) 4.3, Eos % (Auto) 0.6, Baso % (Auto) 0.3, Absolute Neuts (auto) 14.3 H, Absolute Lymphs (auto) 2.02, Nucleated RBC % 0, Sodium 133 L, Potassium 2.8 L, Chloride 91 L, Carbon Dioxide 34.0 H, Anion Gap 8, BUN 56 H, Creatinine 2.11 H, Estim Creat Clear Calc 32.08, Est GFR (MDRD) Af Amer 40 L, Est GFR (MDRD) Non-Af 33 L, BUN/Creatinine Ratio 26.5 H, Glucose 149 H, Calcium 11.1 H, Total Bilirubin 0.40, AST 12 L, ALT 21, Alkaline Phosphatase 105, Total Protein 8.5 H, Albumin 3.4, Globulin 5.1 H, Albumin/Globulin Ratio 0.7 L 07/23/23 06:35: WBC 13.9 H, RBC 3.86 L, Hgb 11.3 L, Hct 33.0 L, MCV 85.5, MCH 29.3, MCHC 34.2, RDW Std Deviation 44.4 H, RDW Coeff of Nikolas 14.3, Plt Count 281, MPV 9.7, Immature Gran % (Auto) 0.700, Neut % (Auto) 76.7 H, Lymph % (Auto) 16.0 L, [place] % (Auto) 5.2, Eos % (Auto) 1.0, Baso % (Auto) 0.4, Absolute Neuts (auto) 10.7 H, Absolute Lymphs (auto) 2.23, Nucleated RBC % 0, Sodium 134 L, Potassium 3.2 L, Chloride 99, Carbon Dioxide 31.0, Anion Gap 4 L, BUN 44 H, Creatinine 1.37 H, Estim Creat Clear Calc 49.22, Est GFR (MDRD) Af Amer 66, Est GFR (MDRD) Non-Af 54 L, BUN/Creatinine Ratio 32.1 H, Glucose 107 H, Calcium 10.3 H Radiology Impression Abdomen CT 07/22/23 19:37 IMPRESSION: 1. Possible gastritis and duodenitis or mass. Correlation with endoscopy is recommended. 2. Cholelithiasis. 3. Bilateral renal cysts. Electronically Signed: Reji Graham MD at 22:15 EDT , Chest X-Ray 07/22/23 21:10 IMPRESSION: Normal x-ray examination of the chest. Electronically Signed: Reji Graham MD at 21:38 EDT , Assessment & Plan Assessment/Plan (1) Abnormal weight loss: (2) Suspected malignant neoplasm: PLAN: Plan Unintended weight loss/suspected malignancy Chest x-ray interpreted by radiologist and also interpreted by hospitalist: No acute cardiopulmonary process. Abdomen CT interpreted by radiologist as: 1. Possible gastritis and duodenitis or mass. Correlation with endoscopy is recommended. 2. Cholelithiasis. 3. Bilateral renal cysts. Abdomen CT was independently interpreted by hospitalist: Agrees. EGD in a.m. patient has been kept NPO. hold current home medicine of Cardizem and losartan. Charges/Coding Visit Charges Inpatient E&M: 26454 Init Hosp L3
[2023-07-23] VITALS (10 sets, daily range): BP systolic 106–134; BP diastolic 73–88; PULSE 77–96; RESP 14–18; TEMP 36.3–37.2; O2SAT 97–100; BMI 20.7
--- NOTE | 2023-07-23 | EGD_PTH ---
PATIENT: NICHOLAS VÁSQUEZ LOC: MS3 U#:[id number] AGE/SX: 72/M [place] [facility] [place]23/[address]: Dr. Tank Duron DO : 1950 BED: 1 DIS: 07/25/2023 SPEC #: [id number] RECD: 07/23/23 12:24 STATUS: NANCY SHIRLEY #: [id number] MELA: 07/23/23 00:[address]: Kj Stone DEPT: SURGICAL PATHOLOGY RECD BY: Beth Isaacs ENTERED: 07/23/23 13:03 SP TYPE: EGD BIOPSY OT DR: DO Dr. Justo Dawn MD Dr. Mark Tereletsky, DO Tissues: A - Duodenum, NOS B - Duodenum, NOS C - Gastric mucous membrane Procedures: Frozen Section (charge) Surgery Specimen Level IV HEADER OPERATION: EGD PRE-OP DIAGNOSIS: Abnormal weight loss and abnormal imaging TISSUE SUBMITTED: A - Duodenal mass, FS, B - Duodenal mass, permanent, C - Gastric ulcer FROZEN SECTION DIAGNOSIS A. Duodenal mass, biopsy: Negative for malignancy. JACK:brooke 07/23/2023 MICROSCOPIC DIAGNOSIS A. Duodenal mass, biopsy: Fragments of duodenal mucosa, negative for malignancy. B. Duodenal mass, biopsy: Fragments of duodenal mucosa with extensive ulceration, acute and chronic inflammation. Negative for malignancy. C. Gastric ulcer, biopsy: Fragments of gastric mucosa with extensive ulceration, acute and chronic inflammation. See comment. SJ:brooke 07/28/2023 COMMENT C. The results of immunohistochemistry for Helicobacter pylori will be reported separately ([id number]). Correlation with clinical, endoscopic findings and appropriate follow-up are necessary, if there is high suspicion of malignancy, rebiopsy is suggested, if clinically indicated. Case has been reviewed in consultation with Dr. Greene who concurs with the above diagnosis. IDC:AM MICROSCOPIC DESCRIPTION Slides are reviewed. GROSS DESCRIPTION A - Received fresh for frozen section diagnosis labeled with the patient's name is a specimen designated duodenal mass. The specimen consists of multiple irregular fragments of light tee soft tissue that in aggregate measure 0.5 x 0.3 x 0.1 cm. The specimen is totally submitted for frozen section diagnosis in one cassette. / JACK:brooke 07/23/2023 TC: B - Received in fixative is one container labeled with the patient's name and designated duodenal mass. The specimen consists of multiple irregular fragments of light tee soft tissue that in aggregate measure 1.2 x 0.3 x 0.1 cm. The specimen is totally submitted in one cassette. / JAKC:brooke 07/24/2023 C - Received in fixative is one container labeled with the patient's name and designated gastric ulcer. The specimen consists of multiple irregular fragments of light tee soft tissue that in aggregate measure 1.5 x 0.3 x 0.1 cm. The specimen is totally submitted in one cassette. / JACK:brooke 07/24/2023 TC:2 [facility]: [id number] x3, [phone]
[2023-07-23] MEDS: Acetaminophen 500 MG Tablet 1000 MG PO (00:59)
[2023-07-23] MEDS: DiphenhydrAMINE 25 MG Capsule 50 MG PO (00:59)
--- NOTE | 2023-07-23 06:00 | EKG12_ITS ---
Test Reason : PRE-OP Blood Pressure : / mmHG Vent. Rate : 076 BPM Atrial Rate : 076 BPM P-R Int : 162 ms QRS Dur : 104 ms QT Int : 396 ms P-R-T Axes : 080 071 042 degrees QTc Int : 445 ms Normal sinus rhythm Normal ECG When compared with ECG of 16-JUN-2021 13:28, Premature ventricular complexes are no longer Present Confirmed by HAMIDA REYES, KAREN ([id number]), design editor MART DAMIAN ([id number]) on 09/01/2023 1:37:38 PM Referred By: DOLORES Confirmed By:KAREN MEI MD
[2023-07-23 06:57] LABS: Absolute Lymphocyte Count 2.23 X10^3/uL (0.83-4.51); Absolute Neutrophil Count 10.7 X10^3/uL (2.0-7.7); Basophil# 0.05 X10^3/uL; Basophil% 0.4 % (0-1); Eosinophil# 0.14 X10^3/uL; Hemoglobin 11.3 g/dL (13.0-16.5); Lymphocyte # 2.23 X10^3/ul (0.83-4.51); Mean Corp Hgb Conc 34.2 g/dL (32-36); Mean Corpuscular Hgb 29.3 pg (27.0-32.0); Mean Corpuscular Volume 85.5 fL (80-94); Mean Platelet Vol. 9.7 fl (6.2-12.0); Monocyte# 0.72 X10^3/uL; Monocyte% 5.2 % (0-10); NRBC Flagged by Analyzer 0 % (0-5); Neutrophil # 10.67 X10^3/uL (2.7-7.7); Neutrophil % 76.7 % (47-70); Platelet Count 281 K/mm3 (150-450); RBC Distribution Width CV 14.3 % (11.6-14.6); RBC Distribution Width SD 44.4 fl (35.1-43.9); Red Blood Count 3.86 M/mm3 (4.6-6.2); White Blood Count 13.9 K/mm3 (4.4-11.0)
[2023-07-23 07:17] LABS: Anion Gap 4 (5-15); BUN 44 mg/dL (7-18); BUN/Creat Ratio 32.1 RATIO (10-20); Calcium,Total 10.3 mg/dL (8.5-10.1); Chloride 99 mmol/L (98-107); Creatinine, Serum 1.37 mg/dL (0.70-1.30); EST Glomerular Filtration Rate 54 mL/min (>60); Est Glom Filt Rate - Afr Amer 66 mL/min (>60); Estimated Creatinine Clearance 49.22 ml/min; Glucose 107 mg/dL (74-106); Potassium 3.2 mmol/L (3.5-5.1); Sodium Level 134 mmol/L (136-145)
[2023-07-23] MEDS: 0.9% Saline Lock 10 ML Syringe IV (10:14)
[2023-07-23] MEDS: Ondansetron 4 MG/2 ML Vial IV (10:14)
[2023-07-23] MEDS: Lactated Ringers 1,000 ML 15 ML IV (11:54)
--- NOTE | 2023-07-23 12:30 | IMM_PTH ---
PATIENT: NICHOLAS VÁSQUEZ LOC: MS3 U#:[id number] AGE/SX: 72/M ROOM: [facility] [place] RE07/23/[address]: Dr. Tank Duron DO : 1950 BED: 1 DIS: 07/25/2023 SPEC #: [id number] RECD: 07/24/23 13:57 STATUS: NANCY REQ #: [id number] MELA: 07/23/23 12:[address]: Kj Stone DEPT: IMMUNOHISTOCHEMISTRY RECD BY: Beth Isacas ENTERED: 07/24/23 13:58 SP TYPE: IMMUNO OTHR DR: DO Dr. Justo Dawn MD Dr. Mark Tereletsky, DO Tissues: C - Stomach, NOS Procedures: H Pylori (initial) PHYSICIAN & INSTITUTION [place] [id number] SPECIMEN INFORMATION: Tissue Source: C - Gastric ulcer Clinical Info: Abnormal weight loss and abnormal imaging Specimen Number: [id number] CPT code: 62452 METHODOLOGY: Deparaffinized sections of prefer/formalin-fixed tissue or PAP/DQ stained slides are incubated with monoclonal/polyclonal antibodies/oligonucleotide probes. Localization is made via biotin free immunoperoxidase method. Appropriate controls are performed and reacted as expected. Results on target cell population are indicated in the following table: RESULTS: ANTIBODY / CLONE RESULT Block C H Pylori (polyclonal) positive These tests were developed and their performance characteristics determined by [facility]. They may not have been cleared or approved by the U.S. Food and Drug Administration. The FDA has determined that such clearance or approval is not necessary. The above immunohistochemical/dualISH markers are ordered and reviewed by the Pathologist. INTERPRETATION: C. Gastric ulcer, biopsy: Positive for numerous Helicobacter pylori organisms. SJ:brooke 07/28/2023
--- NOTE | 2023-07-23 12:37 | OP.EGD_ITS ---
Patient Name: Andrea Welch Procedure Date: 07/23/2023 11:54 AM Date of : 1950 Age: 72 Procedure: Upper GI endoscopy Indications: Epigastric abdominal pain, Iron deficiency anemia Providers: Kj Stone DO Medicines: Monitored Anesthesia Care Patient Profile: This is a 72 year old male. Refer to note in patient chart for documentation of history and physical. Patient has symptoms of acute epigastric abdominal pain and acute nausea. Complications: No immediate complications. Procedure: Pre-Anesthesia Assessment: - Prior to the procedure, a History and Physical was performed, and patient medications and allergies were reviewed. The patient is competent. The risks and benefits of the procedure and the sedation options and risks were discussed with the patient. All questions were answered and informed consent was obtained. Patient identification and proposed procedure were verified by the physician in the pre-procedure area. Mental Status Examination: alert and oriented. Respiratory Examination: clear to auscultation. CV Examination: normal. Prophylactic Antibiotics: The patient does not require prophylactic antibiotics. Prior Anticoagulants: The patient has taken no anticoagulant or antiplatelet agents. ASA Grade Assessment: III - A patient with severe systemic disease. After reviewing the risks and benefits, the patient was deemed in satisfactory condition to undergo the procedure. The anesthesia plan was to use monitored anesthesia care (MAC). Immediately prior to administration of medications, the patient was re-assessed for adequacy to receive sedatives. The heart rate, respiratory rate, oxygen saturations, blood pressure, adequacy of pulmonary ventilation, and response to care were monitored throughout the procedure. The physical status of the patient was re-assessed after the procedure. After obtaining informed consent, the endoscope was passed under direct vision. Throughout the procedure, the patient's blood pressure, pulse, and oxygen saturations were monitored continuously. The Endoscope was introduced through the mouth, and advanced to the second part of duodenum. The upper GI endoscopy was accomplished without difficulty. The patient tolerated the procedure well. Scope In: 12:09:00 PM Scope Out: 12:26:16 PM Total Procedure Duration Time 0 hours 17 minutes 16 seconds Findings: LA Grade C (one or more mucosal breaks continuous between tops of 2 or more mucosal folds, less than 75% circumference) esophagitis with no bleeding was found 37 to 41 cm from the incisors. Excessive fluid was found in the gastric body. Fluid aspiration was performed through the scope suction channel. The amount of fluid collected was 1000 mL. The fluid opaque. Verification of patient identification for the specimen was done. Estimated blood loss was minimal. One oozing cratered gastric ulcer with a visible vessel was found at the incisura. The lesion was 30 mm in largest dimension. Area was successfully injected with 10 mL of a 0.4 mg/mL solution of epinephrine for drug delivery. Coagulation for hemostasis using heater probe was successful. Estimated blood loss was minimal. Biopsies were taken with a cold forceps for histology. Verification of patient identification for the specimen was done. Estimated blood loss was minimal. An acquired malignant-appearing, intrinsic severe stenosis was found in the duodenal bulb and was traversed after dilation. A TTS dilator was passed through the scope. Dilation with a 15 mm pyloric balloon dilator was performed. The dilation site was examined and showed mild improvement in luminal narrowing. Biopsies were taken with a cold forceps for histology. Verification of patient identification for the specimen was done. Estimated blood loss was minimal. A large ulcerated mass with bleeding was found in the duodenal bulb. Biopsies were taken with a cold forceps for histology. Verification of patient identification for the specimen was done. Estimated blood loss was minimal. Impression: - LA Grade C erosive esophagitis with no bleeding. - Excessive gastric fluid. Fluid aspiration performed. - Oozing gastric ulcer with a visible vessel. Injected. Treated with a heater probe. Biopsied. - Acquired duodenal stenosis. Dilated. Biopsied. 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 Recommendation: - Return patient to hospital [facility] for ongoing care. - Clear liquid diet. - Continue present medications. - Await pathology results. - Repeat upper endoscopy for retreatment. - Patient will need duodenal stent because he has a gastric outlet obstruction - No NSAIDs - Protonix 40 mg twice a day - Oncology referral and staging Procedure Code(s): --- Professional --- 49613, 59, Esophagogastroduodenoscopy, flexible, transoral; with control of bleeding, any method 19852, Esophagogastroduodenoscopy, flexible, transoral; with dilation of gastric/duodenal stricture(s) (eg, balloon, bougie) 84422, 59, Esophagogastroduodenoscopy, flexible, transoral; with biopsy, single or multiple 48829, 59,51, Esophagogastroduodenoscopy, flexible, transoral; with directed submucosal injection(s), any substance CPT copyright 2021 [employer]. All rights reserved. The codes documented in this report are preliminary and upon ethnoarchaeology professor review may be revised to meet current compliance requirements. Kj Stone DO 07/23/2023 12:36:57 PM This report has been signed electronically. Number of Addenda: 0 Note Initiated On: 07/23/2023 11:54 AM
--- NOTE | 2023-07-23 12:37 | OP.CCLET_ITS ---
07/23/2023 Terrance Cee Re : Upper GI endoscopy procedure for Andrea Coulter Jaye This procedure was performed on June. My impressions and recommendations are as follows: Impressions : - LA Grade C erosive esophagitis with no bleeding. - Excessive gastric fluid. Fluid aspiration performed. - Oozing gastric ulcer with a visible vessel. Injected. Treated with a heater probe. Biopsied. - Acquired duodenal stenosis. Dilated. Biopsied. 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 Recommendations : - Return patient to hospital [facility] for ongoing care. - Clear liquid diet. - Continue present medications. - Await pathology results. - Repeat upper endoscopy for retreatment. - Patient will need duodenal stent because he has a gastric outlet obstruction - No NSAIDs - Protonix 40 mg twice a day - Oncology referral and staging My findings are described in the full procedure note, which is enclosed. If I can be of further assistance, please feel free to contact me at . Sincerely, Kj Stone, 07/23/2023 12:36:57 PM This report has been signed electronically.
--- NOTE | 2023-07-23 14:41 | CT_ITS ---
STUDY: CT ABDOMEN AND PELVIS WITH CONTRAST REASON FOR EXAM: Male, 72 years old. Duodenal cancer RADIATION DOSAGE (If Supplied By Facility): CTDIvol = ( 11.01 ) mGy, DLP = ( 609.30 ) mGycm TECHNIQUE: Transaxial images were obtained from the dome of the diaphragm to the symphysis pubis without oral contrast. IV 100mL Isovue-300 was administered. Sagittal and coronal images were reconstructed. Individualized dose optimization techniques were used for this CT. COMPARISON: Comparison is made with prior study July 22, 2023. FINDINGS: Minimal linear scarring and/or atelectasis at the left lung base. Minimal anterior pericardial thickening. There is decreased attenuation of the liver consistent with steatosis. I suspect a tiny stone in the neck of the gallbladder. There are multiple benign calcified granulomata of the spleen. Normal pancreas. Hyperplasia of both adrenal glands more prominent on the left side. Metastatic deposit should be ruled out. Stable bilateral renal cysts. There is evidence of gastric distention due to fluid retention. There is evidence of diffuse thickening of the gastric wall more prominent along the greater and lesser curvatures. There is dilatation of the proximal duodenum with diffuse circumferential soft tissue prominence and narrowing of the second portion of the duodenum. The patient has a history of duodenal carcinoma. Normal small intestine. There are multiple colonic diverticula consistent with diverticulosis. The appendix is visualized and appears normal. There is diffuse atherosclerotic calcification of the abdominal aorta, without a demonstrated aneurysm. Normal inferior vena cava. Normal retroperitoneum. Normal urinary bladder. Normal abdominal wall. There are diffuse degenerative changes of the visualized lumbar spine. CT/Abdomen/Pelvis W IV Cont ONLY IMPRESSION: Diffuse circumferential thickening of the second portion of the duodenum with distention of the stomach and thickening of the gastric wall along the lesser and greater curvatures. Stable bilateral renal cysts. Fatty infiltration of the liver. With mild degree of intrahepatic or ductal dilatation. Electronically Signed: Reed Barker MD at 15:28 EDT ,
--- NOTE | 2023-07-23 15:37 | CASEMGMT ---
RENEE AGUILA Assessment: Face to Face with pt for initial transition planning/care coordination assessment. RN MINGO introduced self and role at [facility], pt voices understanding and consents to assessment. Pt is A/O x4 and answers all questions appropriately at this time. Pt lying in bed in no distress with at bedside. Care providers, pharmacy, and demographics verified/updated. Admitting Dx: HAYDEE, suspected stomach malignancy PCP:Jaye Specialists:Pt denies Preferred Pharmacy: [facility] Insurance: [facility] Prescription Benefit: yes LNOK: Taylro Welch, Living Arrangements: Pt lives with and son in a single story home with 1 step to enter. Pt reports he is I in ADL's and denies concerns at home. Transportation: Pt drives self and denies concerns with transportation. DME/HHC/SNF: Pt has a cane and walker at home but does not use. Pt denies hx of HHC or SNF stays. Pt states no concerns with going home at time of dc. Pt states no further concerns/needs. CM to follow. Advised pt to ask CM if any further question/concerns/needs arise, voices understanding. Pt Goal: Home Plan: Home, will follow for any needs post surgery
--- NOTE | 2023-07-23 18:10 | PCM.PN.HOSP ---
Reason for Visit Reason for Visit: Diagnoses Elevated white blood cell count, unspecified (07/23/23) Hypokalemia (07/23/23) Disorder of kidney and ureter, unspecified (07/23/23) Abnormal weight loss (07/23/23) Other general symptoms and signs (07/23/23) Subjective Subjective Patient was seen and examined today, he underwent an upper endoscopy today which showed a duodenal ulceration and a neoplasm in the duodenum. I did a CT of his abdomen with IV contrast today which shows thickening of the stomach, there is no evidence of lymphadenopathy and it showed thickening of the duodenum. I talked briefly with the patient's and the patient about perhaps going to another hospital for further work-up, I called [facility] but there were no beds available and in talking again with the patient and the patient's , he has decided he would rather stay here so a duodenal stent will be placed tomorrow so the patient is able to eat. I had a long conversations with gastroenterology about his care, gastroenterology does not feel the patient is resectable at this time and will need palliative treatment. 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 Objective Data Objective Data Vital Signs: Vital Signs Temp Pulse Resp BP Pulse Ox O2 Del Method 97.9 F 89 18 123/86 H 98 Room Air 07/23/23 13:15 07/23/23 13:15 07/23/23 13:15 07/23/23 13:15 07/23/23 13:15 07/23/23 13:15 Oxygen Delivery Method Room Air Weight: 71.4 kg Body Mass Index (BMI) 20.7 Intake & Output: Intake and Output for Last 24 Hours 07/21/23 07/22/23 07/23/23 23:59 23:59 23:59 Intake Total 1000 / 1000 1691.58 / 1691.58 Balance 1000 / 1000 1691.58 / 1691.58 Lab / Micro Data 07/23/23 06:35 07/23/23 06:35 Labs: Laboratory Results - last 24 hr 07/22/23 19:25: WBC 17.4 H, RBC 4.23 L, Hgb 12.2 L, Hct 36.8 L, MCV 87.0, MCH 28.8, MCHC 33.2, RDW Std Deviation 45.4 H, RDW Coeff of Nikolas 14.3, Plt Count 367, MPV 10.2, Immature Gran % (Auto) 0.900, Neut % (Auto) 82.3 H, Lymph % (Auto) 11.6 L, [place] % (Auto) 4.3, Eos % (Auto) 0.6, Baso % (Auto) 0.3, Absolute Neuts (auto) 14.3 H, Absolute Lymphs (auto) 2.02, Nucleated RBC % 0, Sodium 133 L, Potassium 2.8 L, Chloride 91 L, Carbon Dioxide 34.0 H, Anion Gap 8, BUN 56 H, Creatinine 2.11 H, Estim Creat Clear Calc 32.08, Est GFR (MDRD) Af Amer 40 L, Est GFR (MDRD) Non-Af 33 L, BUN/Creatinine Ratio 26.5 H, Glucose 149 H, Calcium 11.1 H, Total Bilirubin 0.40, AST 12 L, ALT 21, Alkaline Phosphatase 105, Total Protein 8.5 H, Albumin 3.4, Globulin 5.1 H, Albumin/Globulin Ratio 0.7 L 07/23/23 06:35: WBC 13.9 H, RBC 3.86 L, Hgb 11.3 L, Hct 33.0 L, MCV 85.5, MCH 29.3, MCHC 34.2, RDW Std Deviation 44.4 H, RDW Coeff of Nikolas 14.3, Plt Count 281, MPV 9.7, Immature Gran % (Auto) 0.700, Neut % (Auto) 76.7 H, Lymph % (Auto) 16.0 L, [place] % (Auto) 5.2, Eos % (Auto) 1.0, Baso % (Auto) 0.4, Absolute Neuts (auto) 10.7 H, Absolute Lymphs (auto) 2.23, Nucleated RBC % 0, Sodium 134 L, Potassium 3.2 L, Chloride 99, Carbon Dioxide 31.0, Anion Gap 4 L, BUN 44 H, Creatinine 1.37 H, Estim Creat Clear Calc 49.22, Est GFR (MDRD) Af Amer 66, Est GFR (MDRD) Non-Af 54 L, BUN/Creatinine Ratio 32.1 H, Glucose 107 H, Calcium 10.3 H Radiography Diagnostic Testing: Radiology Impression Abdomen CT 07/22/23 19:37 IMPRESSION: 1. Possible gastritis and duodenitis or mass. Correlation with endoscopy is recommended. 2. Cholelithiasis. 3. Bilateral renal cysts. Electronically Signed: Reji Graham MD at 22:15 EDT , Chest X-Ray 07/22/23 21:10 IMPRESSION: Normal x-ray examination of the chest. Electronically Signed: Reji Graham MD at 21:38 EDT , Abdomen/Pelvis CT 07/23/23 14:41 IMPRESSION: Diffuse circumferential thickening of the second portion of the duodenum with distention of the stomach and thickening of the gastric wall along the lesser and greater curvatures. Stable bilateral renal cysts. Fatty infiltration of the liver. With mild degree of intrahepatic or ductal dilatation. Electronically Signed: Reed Barker MD at 15:28 EDT , Physical Exam Const alert, oriented x3 and no apparent distress General Appearance: cooperative, well kempt and well developed Orientation / Consciousness: awake, oriented to person, oriented to place and oriented to time HEENT normocephalic, head/scalp atraumatic and moist oral mucous membranes Eyes PERRL, EOMs intact bilaterally and conjunctivae normal Neck supple, no JVD, thyroid normal and no carotid bruits General: trachea midline Resp normal respiratory effort, no retractions, no use of accessory muscles and clear to auscultation bilaterally Auscultation: Negative for rales, rhonchi or wheezes Cardio regular rate, regular rhythm, S1 normal heart sound, S2 normal heart sound, no murmurs, no rub and no gallops GI normal to inspection, nondistended, normoactive bowel sounds, soft to palpation, non-tender and non-distended Extremity no clubbing, cyanosis or edema Skin no rashes or lesions noted General Skin Exam: no breakdown Neuro oriented x3, CN's II-XII intact bilaterally, moves all extremities, no focal motor deficits and no sensory deficits noted Sensorium / Orientation: awake, alert, oriented to person, oriented to place and oriented to time Speech: speech normal Psych affect normal Assessment & Plan Assessment/Plan (1) Abnormal weight loss: PLAN: Plan 1. 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 tomorrow, he will need to follow-up with an oncologist as an outpatient regarding further treatment #2 acute kidney injury-patient responded to IV fluids, his creatinine today is 1.37, I will continue IV fluids and recheck his BMP tomorrow #3 chronic severe protein and caloric malnutrition-as evidenced by a 50 pound weight loss over the past 6 months-patient will be seen by nutritional services, recommendations to follow #4 hypokalemia-patient is receiving IV fluids with potassium, BMP will be rechecked tomorrow #6 essential hypertension-patient's losartan will be held at this time, his blood pressure is not elevated. Total clinical time spent by myself addressing the patient's medical issues, reviewing all of his data, and collaborating with patient's care team: 35 minutes Charges/Coding Visit Charges Inpatient E&M: 63550 Subs Hosp L2
--- NOTE | 2023-07-23 18:31 | EX.PCM.PN.GI ---
Subjective Subjective Patient underwent an upper endoscopy today and was discovered to have a gastric outlet obstruction. Over 1.5 L of fluid was removed from his stomach endoscopically. He was discovered to have a duodenal mass that was obstructing the flow from his stomach. Biopsies were taken. He will be scheduled for a duodenal stent tomorrow. N.p.o. past midnight. Objective Data Objective Data Vital Signs: Vital Signs Temp Pulse Resp BP Pulse Ox O2 Del Method 97.9 F 89 18 123/86 H 98 Room Air 07/23/23 13:15 07/23/23 13:15 07/23/23 13:15 07/23/23 13:15 07/23/23 13:15 07/23/23 13:15 Oxygen Delivery Method Room Air Weight: 157 lb 6.561 oz Body Mass Index (BMI) 20.7 Intake & Output: Intake and Output for Last 24 Hours 07/21/23 07/22/23 07/23/23 23:59 23:59 23:59 Intake Total 1000 / 1000 1691.58 / 1691.58 Balance 1000 / 1000 1691.58 / 1691.58 Lab / Micro Data 07/23/23 06:35 07/23/23 06:35 Labs: Laboratory Results - last 24 hr 07/22/23 19:25: WBC 17.4 H, RBC 4.23 L, Hgb 12.2 L, Hct 36.8 L, MCV 87.0, MCH 28.8, MCHC 33.2, RDW Std Deviation 45.4 H, RDW Coeff of Nikolas 14.3, Plt Count 367, MPV 10.2, Immature Gran % (Auto) 0.900, Neut % (Auto) 82.3 H, Lymph % (Auto) 11.6 L, [place] % (Auto) 4.3, Eos % (Auto) 0.6, Baso % (Auto) 0.3, Absolute Neuts (auto) 14.3 H, Absolute Lymphs (auto) 2.02, Nucleated RBC % 0, Sodium 133 L, Potassium 2.8 L, Chloride 91 L, Carbon Dioxide 34.0 H, Anion Gap 8, BUN 56 H, Creatinine 2.11 H, Estim Creat Clear Calc 32.08, Est GFR (MDRD) Af Amer 40 L, Est GFR (MDRD) Non-Af 33 L, BUN/Creatinine Ratio 26.5 H, Glucose 149 H, Calcium 11.1 H, Total Bilirubin 0.40, AST 12 L, ALT 21, Alkaline Phosphatase 105, Total Protein 8.5 H, Albumin 3.4, Globulin 5.1 H, Albumin/Globulin Ratio 0.7 L 07/23/23 06:35: WBC 13.9 H, RBC 3.86 L, Hgb 11.3 L, Hct 33.0 L, MCV 85.5, MCH 29.3, MCHC 34.2, RDW Std Deviation 44.4 H, RDW Coeff of Nikolas 14.3, Plt Count 281, MPV 9.7, Immature Gran % (Auto) 0.700, Neut % (Auto) 76.7 H, Lymph % (Auto) 16.0 L, [place] % (Auto) 5.2, Eos % (Auto) 1.0, Baso % (Auto) 0.4, Absolute Neuts (auto) 10.7 H, Absolute Lymphs (auto) 2.23, Nucleated RBC % 0, Sodium 134 L, Potassium 3.2 L, Chloride 99, Carbon Dioxide 31.0, Anion Gap 4 L, BUN 44 H, Creatinine 1.37 H, Estim Creat Clear Calc 49.22, Est GFR (MDRD) Af Amer 66, Est GFR (MDRD) Non-Af 54 L, BUN/Creatinine Ratio 32.1 H, Glucose 107 H, Calcium 10.3 H Radiography Diagnostic Testing: Radiology Impression Abdomen CT 07/22/23 19:37 IMPRESSION: 1. Possible gastritis and duodenitis or mass. Correlation with endoscopy is recommended. 2. Cholelithiasis. 3. Bilateral renal cysts. Electronically Signed: Reji Graham MD at 22:15 EDT , Chest X-Ray 07/22/23 21:10 IMPRESSION: Normal x-ray examination of the chest. Electronically Signed: Reji Graham MD at 21:38 EDT , Abdomen/Pelvis CT 07/23/23 14:41 IMPRESSION: Diffuse circumferential thickening of the second portion of the duodenum with distention of the stomach and thickening of the gastric wall along the lesser and greater curvatures. Stable bilateral renal cysts. Fatty infiltration of the liver. With mild degree of intrahepatic or ductal dilatation. Electronically Signed: Reed Barker MD at 15:28 EDT , Physical Exam Const alert, oriented x3 and no apparent distress General Appearance: cooperative, well kempt and well developed Orientation / Consciousness: awake, oriented to person, oriented to place and oriented to time HEENT normocephalic, head/scalp atraumatic and moist oral mucous membranes Eyes PERRL, EOMs intact bilaterally and conjunctivae normal Neck supple, no JVD, thyroid normal and no carotid bruits General: trachea midline Resp normal respiratory effort, no retractions, no use of accessory muscles and clear to auscultation bilaterally Auscultation: Negative for rales, rhonchi or wheezes Cardio regular rate, regular rhythm, S1 normal heart sound, S2 normal heart sound, no murmurs, no rub and no gallops GI normal to inspection, nondistended, normoactive bowel sounds, soft to palpation, non-tender and non-distended Extremity no clubbing, cyanosis or edema Skin no rashes or lesions noted General Skin Exam: no breakdown Neuro oriented x3, CN's II-XII intact bilaterally, moves all extremities, no focal motor deficits and no sensory deficits noted Sensorium / Orientation: awake, alert, oriented to person, oriented to place and oriented to time Speech: speech normal Psych affect normal Assessment & Plan Assessment/Plan (1) Suspected malignant neoplasm: PLAN: Gastric outlet obstruction due to large mass of the proximal duodenum. Repeat endoscopy in the morning. Charges/Coding Visit Charges Inpatient E&M: 04031 Subs Hosp L2
[2023-07-24] VITALS (8 sets, daily range): BP systolic 108–140; BP diastolic 73–90; PULSE 74–95; RESP 16–18; TEMP 36.1–36.8; O2SAT 97–100
[2023-07-24 06:39] LABS: Anion Gap 5 (5-15); BUN 33 mg/dL (7-18); Calcium,Total 9.1 mg/dL (8.5-10.1); Chloride 108 mmol/L (98-107); Creatinine, Serum 1.22 mg/dL (0.70-1.30); EST Glomerular Filtration Rate 62 mL/min (>60); Est Glom Filt Rate - Afr Amer 75 mL/min (>60); Estimated Creatinine Clearance 55.27 ml/min; Glucose 76 mg/dL (74-106); Potassium 3.7 mmol/L (3.5-5.1); Sodium Level 140 mmol/L (136-145)
[2023-07-24] MEDS: 0.9% Saline Lock 10 ML Syringe IV (10:51)
[2023-07-24] MEDS: Lactated Ringers 1,000 ML 15 ML IV (12:00)
--- NOTE | 2023-07-24 13:25 | RAD_ITS ---
PROCEDURE: Duodenal stent placement. DATE OF EXAMINATION: July 24, 2023. INDICATION: Male, 72 years old. Duodenal mass and stricture. FLUOROSCOPY TIME (if supplied): (298 seconds) minutes/seconds. 54.5 mGy. 7 images were submitted. Fluoroscopic services provided for stent placement in the duodenum. RAD/Fluoroscopy 1 Hr or Less IMPRESSION: Fluoroscopic services provided for duodenal stent placement. Electronically Signed: Reed Barker MD at 12:36 EDT ,
--- NOTE | 2023-07-24 15:19 | OP.EGD_ITS ---
Patient Name: Andrea Welch Procedure Date: 07/24/2023 11:48 AM Date of : 1950 Age: 72 Procedure: Upper GI endoscopy Indications: Epigastric abdominal pain, Abnormal CT of the GI tract Providers: Kj Stone DO Medicines: Monitored Anesthesia Care Patient Profile: This is a 72 year old male. Refer to note in patient chart for documentation of history and physical. Patient has symptoms of acute epigastric abdominal pain and acute nausea. Complications: No immediate complications. Procedure: Pre-Anesthesia Assessment: - Prior to the procedure, a History and Physical was performed, and patient medications and allergies were reviewed. The patient is competent. The risks and benefits of the procedure and the sedation options and risks were discussed with the patient. All questions were answered and informed consent was obtained. Patient identification and proposed procedure were verified by the physician. Mental Status Examination: normal. Airway Examination: normal oropharyngeal airway and neck mobility. Respiratory Examination: clear to auscultation. CV Examination: normal. Prophylactic Antibiotics: The patient does not require prophylactic antibiotics. Prior Anticoagulants: The patient has taken no anticoagulant or antiplatelet agents. ASA Grade Assessment: II - A patient with mild systemic disease. After reviewing the risks and benefits, the patient was deemed in satisfactory condition to undergo the procedure. The anesthesia plan was to use monitored anesthesia care (MAC). Immediately prior to administration of medications, the patient was re-assessed for adequacy to receive sedatives. The heart rate, respiratory rate, oxygen saturations, blood pressure, adequacy of pulmonary ventilation, and response to care were monitored throughout the procedure. The physical status of the patient was re-assessed after the procedure. After obtaining informed consent, the endoscope was passed under direct vision. Throughout the procedure, the patient's blood pressure, pulse, and oxygen saturations were monitored continuously. The gastroscope was introduced through the mouth, and advanced to the second part of duodenum. The upper GI endoscopy was accomplished without difficulty. The patient tolerated the procedure well. Scope In: 1:40:23 PM Scope Out: 3:00:15 PM Total Procedure Duration Time 1 hour 19 minutes 52 seconds Findings: LA Grade D (one or more mucosal breaks involving at least 75% of esophageal circumference) esophagitis with bleeding was found 35 to 40 cm from the incisors. Coagulation for hemostasis using heater probe was successful. Estimated blood loss was minimal. Clear fluid was found in the stomach. Fluid aspiration was performed through the scope suction channel. The amount of fluid collected was 400 mL. The fluid clear. Verification of patient identification for the specimen was done. Estimated blood loss was minimal. A malignant-appearing, intrinsic severe stenosis was found at the pylorus. This was traversed. A TTS dilator was passed through the scope. Dilation with an 18 mm pyloric balloon dilator was performed under fluoroscopic guidance. The dilation site was examined and showed mild improvement in luminal narrowing. Estimated blood loss was minimal. A large ulcerated mass with bleeding was found in the duodenal bulb. This was stented with a 22 mm x 9 cm WallFlex stent. Estimated blood loss was minimal. Impression: - LA Grade D erosive esophagitis with bleeding. Treated with a heater probe. - Clear gastric fluid. Fluid aspiration performed. - Gastric stenosis was found at the pylorus. Dilated. 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 Prosthesis placed. Recommendation: - Return patient to hospital [facility] for ongoing care. - Full liquid diet. - Continue present medications. - Await pathology results. Procedure Code(s): --- Professional --- 29960, Esophagogastroduodenoscopy, flexible, transoral; with placement of endoscopic stent (includes pre- and post-dilation and guide wire passage, when performed) 52356, 59,51, Esophagogastroduodenoscopy, flexible, transoral; with control of bleeding, any method 20159, 26, Intraluminal dilation of strictures and/or obstructions (eg, esophagus), radiological supervision and interpretation CPT copyright 2021 [employer]. All rights reserved. The codes documented in this report are preliminary and upon inside horticultural specialty grower review may be revised to meet current compliance requirements. Kj Stone DO 07/24/2023 3:18:51 PM This report has been signed electronically. Number of Addenda: 0 Note Initiated On: 07/24/2023 11:48 AM
--- NOTE | 2023-07-24 15:19 | OP.CCLET_ITS ---
07/24/2023 Terrance Cee Re : Upper GI endoscopy procedure for Andrea Coulter Jaye This procedure was performed on Monday, July 24, 2023. My impressions and recommendations are as follows: Impressions : - LA Grade D erosive esophagitis with bleeding. Treated with a heater probe. - Clear gastric fluid. Fluid aspiration performed. - Gastric stenosis was found at the pylorus. Dilated. 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 Prosthesis placed. Recommendations : - Return patient to hospital [facility] for ongoing care. - Full liquid diet. - Continue present medications. - Await pathology results. My findings are described in the full procedure note, which is enclosed. If I can be of further assistance, please feel free to contact me at . Sincerely, Kj Stone, 07/24/2023 3:18:51 PM This report has been signed electronically.
--- NOTE | 2023-07-24 17:11 | PN.HOSP_ITS ---
Reason for Visit Reason for Visit: Diagnoses Elevated white blood cell count, unspecified (07/23/23) Hypokalemia (07/23/23) Disorder of kidney and ureter, unspecified (07/23/23) Abnormal weight loss (07/23/23) Other general symptoms and signs (07/23/23) Subjective Subjective Patient was seen and examined today, he underwent a repeat EGD, a duodenal stent was placed, his pylorus was dilated, he also had evidence of erosive esophagitis with bleeding which was treated with a heater probe. Patient CT scan yesterday did not show any involvement of his liver, there was some questionable involvement of the bottom of the patient's stomach with some thickening noted-it is not possible to ascertain whether this is gastric cancer or spread of duod enal cancer upward. Objective Data Objective Data Vital Signs: Vital Signs Temp Pulse Resp BP Pulse Ox O2 Del Method 98.0 F 74 18 140/90 H 100 Room Air 07/24/23 16:00 07/24/23 16:00 07/24/23 16:00 07/24/23 16:00 07/24/23 16:00 07/24/23 16:00 Oxygen Delivery Method Room Air Weight: 71.4 kg Body Mass Index (BMI) 20.7 Intake & Output: Intake and Output for Last 24 Hours 07/22/23 07/23/23 07/24/23 23:59 23:59 23:59 Intake Total 1000 / 1000 2696.58 / 2696.58 1233.33 / 1233.33 Balance 1000 / 1000 2696.58 / 2696.58 1233.33 / 1233.33 Lab / Micro Data 07/23/23 06:35 07/24/23 05:50 Labs: Laboratory Results - last 24 hr 07/24/23 05:50: Sodium 140, Potassium 3.7, Chloride 108 H, Carbon Dioxide 27.0, Anion Gap 5, BUN 33 H, Creatinine 1.22, Estim Creat Clear Calc 55.27, Est GFR ( MDRD) Af Amer 75, Est GFR (MDRD) Non-Af 62, BUN/Creatinine Ratio 27.0 H, Glucose 76, Calcium 9.1 Physical Exam Narrative alert, oriented x3 and no apparent distress General Appearance: cooperative, well kempt and well developed Orientation / Consciousness: awake, oriented to person, oriented to place and oriented to time HEENT normocephalic, head/scalp atraumatic and moist oral mucous membranes Eyes PERRL, EOMs intact bilaterally and conjunctivae normal Neck supple, no JVD, thyroid normal and no carotid bruits General: trachea midline Resp normal respiratory effort, no retractions, no use of accessory muscles and clear to auscultation bilaterally Auscultation: Negative for rales, rhonchi or wheezes Cardio regular rate, regular rhythm, S1 normal heart sound, S2 normal heart sound, no murmurs, no rub and no gallops GI normal to inspection, nondistended, normoactive bowel sounds, soft to palpation, non-tender and non-distended Extremity no clubbing, cyanosis or edema Skin no rashes or lesions noted General Skin Exam: no breakdown Neuro oriented x3, CN's II-XII intact bilaterally, moves all extremities, no focal motor deficits and no sensory deficits noted Sensorium / Orientation: awake, alert, oriented to person, oriented to place and oriented to time Speech: speech normal Psych affect normal Assessment & Plan Assessment/Plan (1) Suspected malignant neoplasm: (2) Abnormal weight loss: PLAN: Plan 1. Adenocarcinoma of the duodenum-again, patient had a duodenal stent placed today, he will be on clear liquids, he will need outpatient treatment of his adenocarcinoma. #2 acute kidney injury-patient responded to IV fluids, his creatinine today is 1.22, I will continue IV fluids for now at 75 cc an hour #3 leukocytosis-etiology unclear, monitor CBC as needed #4 hypokalemia-patient is receiving IV fluids with potassium, potassium has normalized #5 essential hypertension-patient's losartan will be restarted tomorrow. Malnutrition was ruled out Total clinical time spent by myself addressing the patient's medical issues, reviewing all of his data, and collaborating with patient's care team: 35 minutes Charges/Coding Visit Charges Inpatient E&M: 31245 Subs Hosp L2
[2023-07-25 04:29] VITALS: BP 135/86; PULSE 75; RESP 16; TEMP 36.6; O2SAT 100
[2023-07-25 08:32] VITALS: BP 119/85; PULSE 70; RESP 18; TEMP 36.7; O2SAT 98
--- NOTE | 2023-07-25 09:13 | EX.PCM.PN.GI ---
Subjective Subjective Patient underwent duodenal stent placement yesterday via EGD. He had no complications on the procedure. He does not have any abdominal pain at this time. Documentation was given to his regarding recommendations for feeding him going from liquids to solid food over the next 3 days. Objective Data Objective Data Vital Signs: Vital Signs Temp Pulse Resp BP Pulse Ox O2 Del Method 98.0 F 70 18 119/85 H 98 Room Air 07/25/23 08:32 07/25/23 08:32 07/25/23 08:32 07/25/23 08:32 07/25/23 08:32 07/25/23 08:32 Oxygen Delivery Method Room Air Weight: 157 lb 6.561 oz Body Mass Index (BMI) 20.7 Intake & Output: Intake and Output for Last 24 Hours 07/23/23 07/24/23 07/25/23 23:59 23:59 23:59 Intake Total 2696.58 / 2696.58 1593.33 / 1593.33 1365.67 / 1365.67 Balance 2696.58 / 2696.58 1593.33 / 1593.33 1365.67 / 1365.67 Lab / Micro Data 07/23/23 06:35 07/24/23 05:50 Physical Exam Narrative alert, oriented x3 and no apparent distress General Appearance: cooperative, well kempt and well developed Orientation / Consciousness: awake, oriented to person, oriented to place and oriented to time HEENT normocephalic, head/scalp atraumatic and moist oral mucous membranes Eyes PERRL, EOMs intact bilaterally and conjunctivae normal Neck supple, no JVD, thyroid normal and no carotid bruits General: trachea midline Resp normal respiratory effort, no retractions, no use of accessory muscles and clear to auscultation bilaterally Auscultation: Negative for rales, rhonchi or wheezes Cardio regular rate, regular rhythm, S1 normal heart sound, S2 normal heart sound, no murmurs, no rub and no gallops GI normal to inspection, nondistended, normoactive bowel sounds, soft to palpation, non-tender and non-distended Extremity no clubbing, cyanosis or edema Skin no rashes or lesions noted General Skin Exam: no breakdown Neuro oriented x3, CN's II-XII intact bilaterally, moves all extremities, no focal motor deficits and no sensory deficits noted Sensorium / Orientation: awake, alert, oriented to person, oriented to place and oriented to time Speech: speech normal Psych affect normal Assessment & Plan Assessment/Plan (1) Suspected malignant neoplasm: PLAN: Gastric outlet obstruction due to large mass of the proximal duodenum status post dilation and stent placement to relieve gastric outlet obstruction. Awaiting official cytology and histology. He will need referral to oncology for plan of care. Charges/Coding Visit Charges Inpatient E&M: 40151 Subs Hosp L3
[2023-07-25] MEDS: Losartan Potassium 50 MG Tablet PO (11:13)
--- NOTE | 2023-07-25 11:50 | DCINST_ITS ---
Discharge Instructions Diet Discharge Diet: - (Change diet as directed on information provided to you) Activity Discharge Activity: Return to Normal Activity Weight Bearing Status: Full weight bearing Follow Up Care Test Results: Test results from this visit will be discussed in further detail at your follow- up appointment, if applicable. Discharge Plan Admission Admit Date/Time: 07/23/23 15:28 Primary Reason for Your Visit: Duodenal neoplasm, acute kidney injury Attending Provider: Tank Duron Primary Care Provider: Terrance Cee Consulting Providers: Bertha,Kj; Justo Dobbins Discharge Orders/Prescriptions Prescriptions: New losartan 50 mg Tablet 50 mg PO DAILY Qty: 0 0RF pantoprazole [Protonix] 40 mg tablet,delayed release (DR/EC) 40 mg PO DAILY Qty: 30 0RF Continued losartan 100 mg Tablet 50 mg PO DAILY Discontinued niacin 1,000 mg Tablet Extended Release 24 Hr 1,000 mg PO QHS diltiazem HCl [DILT-XR] 240 mg Capsule,Ext.Rel 24h Degradable 240 mg PO BID Referrals / Follow Up: Terrance Cee DO [Primary Care Provider] - See Referral Note (At your next appointment) Howard Velez MD [Med Staff - Active Staff] - See Referral Note (An appointment but will be arranged for you to see the doctor, call on of next week to confirm your appointment if you have not heard from the doctor's office) Disposition Disposition (needs filled in before D/C Order can be placed): Home, Self Care
--- NOTE | 2023-07-28 18:59 | PCM.DC.SUM ---
Providers Date of Admission: 07/23/23 Date of Discharge: 07/25/23 Primary Care Physician: Dr. Terrance Cee, Consultations 07/23/23 00:21 Consult: Gastroenterology Routine Consulting Provider: BerthaKj Reason for Consult: Possible gastric mass EMERGENT Consult: No MD Notified: Yes Date Notified: 07/23/23 Time Notified: 06:02 Method of Notification: Text Reason For Visit: HAYDEE, SUSPECTED STOMACH MALIGNANCY Diagnosis Discharge Diagnosis (1) Suspected malignant neoplasm: Status: Acute Code(s): R68.89 - Other general symptoms and signs Plan 1. Adenocarcinoma of the duodenum-again, patient had a duodenal stent placed today, he will be on clear liquids, he will need outpatient treatment of his adenocarcinoma. #2 acute kidney injury-patient responded to IV fluids, his creatinine today is 1.22, I will continue IV fluids for now at 75 cc an hour #3 leukocytosis-etiology unclear, monitor CBC as needed #4 hypokalemia-patient is receiving IV fluids with potassium, potassium has normalized #5 essential hypertension-patient's losartan will be restarted tomorrow. Malnutrition was ruled out Total clinical time spent by myself addressing the patient's medical issues, reviewing all of his data, and collaborating with patient's care team: 35 minutes Medications at Discharge Home Medications losartan 100 mg tablet 50 mg PO DAILY 06/16/21 losartan 50 mg tablet 50 mg PO DAILY #0 tabs 07/25/23 nicotine 14 mg/24 hr daily transdermal patch (Nicoderm CQ) 1 patch transdermal DAILY #28 ea 07/25/23 pantoprazole 40 mg tablet,delayed release (Protonix) 40 mg PO DAILY #30 tabs 07/25/23 Hospital Course Operations None Procedures EGD (With stent placement) Summary of Care Provided Minutes Spent on Discharge: 31 Hospital Course: This 72-year-old white male was seen in the emergency room at [facility] with complaints of weight loss, hypotension, and decreased oral intake. Patient's stated that the patient has lost weight over the last 6 months-approximately 50 pounds by their account. Patient did a Cologuard test as an outpatient and got results the day before and they were negative. Patient had blood work done as an outpatient the day before that showed an elevated creatinine and he was directed to go to the emergency room for evaluation. Creatinine was 2.11 in the ER abdominal CT showed possible gastritis and duodenitis or a mass and cholelithiasis. Patient was admitted to [place] [address], he was given IV fluids, and he was seen in consultation by gastroenterology. Gastroenterology performed an EGD which showed a duodenal mass with ulceration, frozen sections revealed it to be an adenocarcinoma. Patient then went the following day for duodenal stent placement. Patient's creatinine improved with administration of IV fluids. On 07/25/2023, patient was seen and examined: On examination he appeared in good health and spirits. Vital signs as documented. Skin warm and dry and without overt rashes. Neck without JVD, neck was supple, trachea midline, thyroid was normal. Lungs clear bilaterally, normal air movement was noted. Heart exam notable for regular rhythm, normal sounds and absence of murmurs, rubs or gallops. Abdomen unremarkable and without evidence of organomegaly, masses, or abdominal aortic enlargement. Bowel sounds are present, abdomen is not distended. Extremities nonedematous, no cyanosis was noted, no clubbing was noted. Neuro: Cranial nerves II through XII are grossly intact, no focal motor deficits were noted, sensation to light touch and pinprick intact, motor exam 5/5 throughout. Psych: Patient is alert and oriented x3, he does not appear anxious or depressed, he does not appear agitated. Patient was discharged in stable condition on 07/25/2023, he was set up to follow-up with oncology as an outpatient. Weight / BMI Weight Weight: 71.4 kg Body Mass Index (BMI) 20.7 ABG / Lab / Microbiology Data 07/23/23 06:35 07/24/23 05:50 Radiography Diagnostic Testing: Radiology Impression Fluoroscopy 07/24/23 13:25 IMPRESSION: Fluoroscopic services provided for duodenal stent placement. Electronically Signed: Reed Barker MD at 12:36 EDT , D/C Instructions Discharge Diet: - (Change diet as directed on information provided to you) Weight Bearing Status: Full weight bearing Meaningful Use Info Meaningful Use Diagnoses (Choose all that apply): None applicable Discharge Plan Admission Admit Date/Time: 07/23/23 15:28 Primary Reason for Your Visit: Duodenal neoplasm, acute kidney injury Attending Provider: Tank Duron Primary Care Provider: Terrance Cee Consulting Providers: Friend,Kj; Justo Dobbins Discharge Orders/Prescriptions Prescriptions: New losartan 50 mg Tablet 50 mg PO DAILY Qty: 0 0RF pantoprazole [Protonix] 40 mg tablet,delayed release (DR/EC) 40 mg PO DAILY Qty: 30 0RF nicotine [Nicoderm CQ] 14 mg/24 hr patch 24 hour 1 patch transdermal DAILY Qty: 28 0RF Continued losartan 100 mg Tablet 50 mg PO DAILY Discontinued niacin 1,000 mg Tablet Extended Release 24 Hr 1,000 mg PO QHS diltiazem HCl [DILT-XR] 240 mg Capsule,Ext.Rel 24h Degradable 240 mg PO BID Referrals / Follow Up: Terrance Cee DO [Primary Care Provider] - See Referral Note (At your next appointment) Howard Velez MD [Med Staff - Active Staff] - See Referral Note (An appointment but will be arranged for you to see the doctor, call on of next week to confirm your appointment if you have not heard from the doctor's office) Disposition Disposition (needs filled in before D/C Order can be placed): Home, Self Care Charges/Coding Visit Charges Inpatient E&M: 96425 Disch Hosp >30min
== END 2023-07-25 12:45 | disposition home or self-care (01) | DRG 374 ==
LOC: ED 22:51 → MS3 23:44
PROVIDERS: Internal Medicine Gastroenterology; Admitting Provider Hospitalist; Emergency Provider Emergency Medicine; PCP Family Medicine; Visit Provider Internal Medicine
PROC: 0DJ08ZZ Inspection of Upper Intestinal Tract, Via Natural or Artificial Opening Endoscopic (ICD-10-PCS; CPT 43235; principal; 2023-07-23 12:25)
DX: C17.0 Malignant neoplasm of duodenum (principal); K25.4 Chronic or unspecified gastric ulcer with hemorrhage; N17.9 Acute kidney failure, unspecified; K31.5 Obstruction of duodenum; D50.9 Iron deficiency anemia, unspecified; E87.6 Hypokalemia; F17.210 Nicotine dependence, cigarettes, uncomplicated; E87.70 Fluid overload, unspecified; N18.30 Chronic kidney disease, stage 3 unspecified; I12.9 Hypertensive chronic kidney disease with stage 1 through stage 4 chronic kidney disease, or unspecified chronic kidney disease; K20.80 Other esophagitis without bleeding; Z82.3 Family history of stroke; N28.1 Cyst of kidney, acquired; Z80.0 Family history of malignant neoplasm of digestive organs; K25.9 Gastric ulcer, unspecified as acute or chronic, without hemorrhage or perforation
CPT/HCPCS: 36415; 71046; 74176; 74177; 76000; 80048; 80053; 85025; 88305; 88331; 88342; 93005; 97802; 99284; J7030; J7040; J7120; Q9967; A4216; J2405

== ENCOUNTER 2023-08-27 10:25 | Day surgery (SDC) | payer MEDICARE, SELFPAY ==
--- NOTE | 2023-08-27 | EGD_PTH ---
PATIENT: NICHOLAS VÁSQUEZ LOC: EN U#:[id number] AGE/SX: 72/M ROOM: RE08/27/[address]: Dr. Kj Stone DO : 1950 BED: DIS: 08/27/2023 SPEC #: [id number] RECD: 08/27/23 14:17 STATUS: NANCY SHIRLEY #: [id number] MELA: 08/27/23 00:[address]: Kj Stone DEPT: SURGICAL PATHOLOGY RECD BY: Anders Carballo ENTERED: 08/27/23 14:17 SP TYPE: EGD BIOPSY OT DR: Dr. Terrance Cee DO Tissues: Esophageal mucous membrane Procedures: Surgery Specimen Level IV HEADER OPERATION: EGD, biopsy, coagulation (APC) PRE-OP DIAGNOSIS: Gastric outlet obstruction TISSUE SUBMITTED: Duodenal mass biopsy MICROSCOPIC DIAGNOSIS Duodenal mass, biopsy: Gastric metaplasia. Focal denudation of mucosa with associated acute and chronic inflammation. Fibrinopurulent material suggestive of ulceration. AM:brooke 08/28/2023 MICROSCOPIC DESCRIPTION Slides are reviewed. GROSS DESCRIPTION Received in fixative is one container labeled with the patient's name and designated duodenal mass biopsy. The specimen consists of multiple irregular fragments of light tee soft tissue that in aggregate measure 2.0 x 0.5 x 0.1 cm. The specimen is totally submitted in one cassette. / SJ:brooke 08/27/2023 TC:2 CPT: 53306
[2023-08-27 10:53] VITALS: BP 155/89; PULSE 107; RESP 16; TEMP 36.4; O2SAT 100; BMI 22.1
[2023-08-27] MEDS: Lactated Ringers 1,000 ML 15 ML IV (10:55)
--- NOTE | 2023-08-27 11:27 | PCM.HP.STD ---
HPI - General General Date of Admission: 08/27/23 Date of Service: 08/27/23 Chief Complaint: Gastric outlet obstruction HPI Narrative NICHOLAS VÁSQUEZ, is a 72 M who presents for follow-up upper endoscopy. He was seen in the emergency room at [facility] with complaints of weight loss, hypotension, and decreased oral intake. Patient's stated that the patient has lost weight over the last 6 months-approximately 50 pounds by their account. Patient did a Cologuard test as an outpatient and got results the day before and they were negative. Patient had blood work done as an outpatient the day before that showed an elevated creatinine and he was directed to go to the emergency room for evaluation. Creatinine was 2.11 in the ER abdominal CT showed possible gastritis and duodenitis or a mass and cholelithiasis. Patient was admitted to [place] [address], he was given IV fluids, and he was seen in consultation by gastroenterology. Gastroenterology performed an EGD which showed a duodenal mass with ulceration, frozen sections revealed it to be acute on chronic inflammation. Patient then went the following day for duodenal stent placement for gastric outlet obstruction. He comes back in today for repeat biopsies and evaluation of gastric outlet obstruction. [facility] Medical History (Updated 08/25/23 @ 14:50 by Hanna Mckay) Alcohol use Anemia Back pain Former smoker Gammopathy Gastric outlet obstruction Gastric reflux H. pylori infection History of stress test History of ulceration Hypertension Low iron Mass of duodenum Restless legs Wears dentures Wears glasses Home Medications nicotine 14 mg/24 hr daily transdermal patch (Nicoderm CQ) 1 patch transdermal DAILY #28 ea 07/25/23 [Rx Last Taken Unknown] pantoprazole 40 mg tablet,delayed release (Protonix) 40 mg PO DAILY #30 tabs 07/25/23 [Rx Last Taken 08/27/23] bismuth subsalicylate 262 mg chewable tablet ([place] Bismuth) 2 tab PO Q8H 08/25/23 [History Last Taken Unknown] losartan 100 mg-hydrochlorothiazide 12.5 mg tablet 1 tab PO DAILY 08/25/23 [History Last Taken Unknown] Allergy/AdvReac Type Severity Reaction Status Date / Time No Known Allergies Allergy Verified 08/27/23 10:50 Family History (Updated 07/30/23 @ 09:38 by Venessa Lucas) Mother CVA (cerebral vascular accident) Father Colon cancer Heart disease Brother Prostate cancer Surgical History (Updated 08/25/23 @ 14:50 by Hanna Mckay) History of foot surgery Hx of esophagogastroduodenoscopy Social History (Updated 07/30/23 @ 09:41 by Venessa Lucas) household members: spouse current occupational status: retired current occupational exposures/hazards: No Smoking Status: Former smoker how long ago did patient quit smokin/4ppd x 40yrs details: used to drink on rare/special occasions, not any more substance use type: does not use ROS Constitutional Constitutional: Reports systems reviewed and no addt'l complaints, except as documented and weight loss; Denies anorexia or fever(s) Eyes Eyes: Reports systems reviewed and no addt'l complaints, except as documented ENT HEENT: Reports systems reviewed and no addt'l complaints, except as documented; Denies mouth lesions Cardiovascular Cardiovascular: Reports systems reviewed and no addt'l complaints, except as documented; Denies chest pain with activity or edema Respiratory/Chest Respiratory/Chest: Reports systems reviewed and no addt'l complaints, except as documented; Denies cough or dyspnea on exertion Gastrointestinal Gastrointestinal: Reports systems reviewed and no addt'l complaints, except as documented and dyspepsia; Denies abdominal pain, anorexia, change in bowel habits, dysphagia, hematochezia, melena, nausea or vomiting Genitourinary Genitourinary: Reports systems reviewed and no addt'l complaints, except as documented Musculoskeletal Musculoskeletal: Reports systems reviewed and no addt'l complaints, except as documented; Denies back pain Integumentary Integumentary: Reports systems reviewed and no addt'l complaints, except as documented Neurologic Neurologic: Reports systems reviewed and no addt'l complaints, except as documented; Denies focal weakness or paresthesias Psychiatric Psychiatric: Reports systems reviewed and no addt'l complaints, except as documented Endocrine Endocrinology: Reports systems reviewed and no addt'l complaints, except as documented Hematologic/Lymphatic Hematologic/Lymphatic: Reports systems reviewed and no addt'l complaints, except as documented; Denies lymphadenopathy Allergic/Immunologic Allergic/Immunologic: Reports systems reviewed and no addt'l complaints, except as documented Vital Signs Vital Signs Vital Signs: 08/27/23 10:53 08/27/23 10:53 Temperature 97.5 F L Temperature Source Temporal Pulse Rate 107 H Respiratory Rate 16 Respiratory Pattern Normal Blood Pressure 155/89 H Blood Pressure Mean 111 Blood Pressure Source Monitor Blood Pressure Position Semi-Fowlers Blood Pressure Location Left Arm Pulse Ox 100 Oxygen Delivery Method Room Air Weight Weight: 167 lb 8.821 oz Body Mass Index (BMI) 22.1 Physical Exam Narrative ECOG 0-1 Const alert, oriented x3 and no apparent distress Nutritional Appearance: thin HEENT normocephalic Face and Sinus: normal facial exam Mouth: oral and palatal mucosa normal Teeth and Gingiva: dentures Eyes General Eye: normal appearance of both eyes Neck no lymphadenopathy and no JVD Lymph Lymphatic: no lymphadenopathy noted Resp clear to auscultation bilaterally Cardio regular rate and regular rhythm Jugular Venous Distention: Negative for JVD GI soft to palpation, non-tender, non-distended and no masses; Negative for hepatosplenomegaly Back/Spine no thoracic nor lumbar tenderness Extremity no clubbing, cyanosis or edema Skin no rashes or lesions noted Neuro oriented x3, CN's II-XII intact bilaterally, moves all extremities and no focal motor deficits Coordination / Balance: [id number] test normal Speech: speech normal Gait (Neuro): normal gait Psych mental status grossly normal Assessment & Plan Assessment/Plan (1) Suspected malignant neoplasm: PLAN: Gastric outlet obstruction due to large mass of the proximal duodenum status post dilation and stent placement to relieve gastric outlet obstruction. Awaiting repeat cytology and histology. He was explained alternatives, risk, benefits include not withstanding bleeding, infection, sepsis, perforation, need for emergent and . He will have an ASA of 3.
[2023-08-27 11:54] VITALS: BP 155/89; BP 97/69; PULSE 76; RESP 16; TEMP 36.4; O2SAT 99
--- NOTE | 2023-08-27 11:58 | OP.EGD_ITS ---
Patient Name: Andrea Welch Procedure Date: 08/27/2023 11:24 AM Date of : 1950 Age: 72 Procedure: Upper GI endoscopy Indications: Epigastric abdominal pain, Abnormal CT of the GI tract Providers: Kj Stone DO Referring MD: Kj Stone DO Medicines: Monitored Anesthesia Care Patient Profile: This is a 72 year old male. Refer to note in patient chart for documentation of history and physical. Patient has symptoms of chronic epigastric abdominal pain, chronic nausea and chronic vomiting. Complications: No immediate complications. Procedure: Pre-Anesthesia Assessment: - Prior to the procedure, a History and Physical was performed, and patient medications and allergies were reviewed. The patient is competent. The risks and benefits of the procedure and the sedation options and risks were discussed with the patient. All questions were answered and informed consent was obtained. Patient identification and proposed procedure were verified by the physician in the pre-procedure area. Mental Status Examination: alert and oriented. Airway Examination: normal oropharyngeal airway and neck mobility. Respiratory Examination: clear to auscultation. CV Examination: normal. Prophylactic Antibiotics: The patient does not require prophylactic antibiotics. Prior Anticoagulants: The patient has taken no anticoagulant or antiplatelet agents. ASA Grade Assessment: III - A patient with severe systemic disease. After reviewing the risks and benefits, the patient was deemed in satisfactory condition to undergo the procedure. The anesthesia plan was to use monitored anesthesia care (MAC). Immediately prior to administration of medications, the patient was re-assessed for adequacy to receive sedatives. The heart rate, respiratory rate, oxygen saturations, blood pressure, adequacy of pulmonary ventilation, and response to care were monitored throughout the procedure. The physical status of the patient was re-assessed after the procedure. After obtaining informed consent, the endoscope was passed under direct vision. Throughout the procedure, the patient's blood pressure, pulse, and oxygen saturations were monitored continuously. The gastroscope was introduced through the mouth, and advanced to the second part of duodenum. The upper GI endoscopy was accomplished without difficulty. The patient tolerated the procedure well. Scope In: Scope Out: 11:48:48 AM Findings: The examined esophagus was normal. A small hiatal hernia was present. Stent was seen protruding into the stomach from the duodenum through the pyloric sphincter. The part of the stent in the stomach was patent with some mild debris around the stent. There was the appearance of ingrowth and the stent that had appearance of bleeding stigmata. Biopsies were taken of the ingrowth in the stent and the bleeding was treated with APC and epinephrine injection. There also was the appearance of a fistula or communication adjacent to the stent that was not previously seen prior to the stent being placed. The scope was able to be inserted through the stent and into the second portion of the duodenum. Localized severe inflammation with hemorrhage characterized by congestion (edema), erosions, erythema, friability, granularity, nodularity and confluent ulcerations was found in the duodenal bulb and in the first portion of the duodenum. Biopsies were taken with a cold forceps for histology. Area was successfully injected with 5 mL of a 0.1 mg/mL solution of epinephrine for drug delivery. Coagulation for hemostasis using argon plasma at 0.3 liters/minute and 20 orellana was successful. Estimated blood loss was minimal. Impression: - Normal esophagus. - Small hiatal hernia. - Acute duodenitis with hemorrhage. Biopsied. Injected. Treated with argon plasma coagulation (APC). Recommendation: - Discharge patient to home. - Full liquid diet today. - Continue present medications. - Use Protonix (pantoprazole) 40 mg PO BID for 12 weeks. - Use sucralfate tablets 1 gram PO QID. Procedure Code(s): --- Professional --- 90991, 59, Esophagogastroduodenoscopy, flexible, transoral; with control of bleeding, any method 22469, Esophagogastroduodenoscopy, flexible, transoral; with biopsy, single or multiple 17970, 59,51, Esophagogastroduodenoscopy, flexible, transoral; with directed submucosal injection(s), any substance CPT copyright 2021 [employer]. All rights reserved. The codes documented in this report are preliminary and upon floor installer review may be revised to meet current compliance requirements. Kj Stone DO 08/27/2023 11:57:57 AM This report has been signed electronically. Number of Addenda: 0 Note Initiated On: 08/27/2023 11:24 AM
--- NOTE | 2023-08-27 11:58 | OP.CCLET_ITS ---
08/27/2023 Terrance Cee Re : Upper GI endoscopy procedure for Andrea Coulter Jaye This procedure was performed on August. My impressions and recommendations are as follows: Impressions : - Normal esophagus. - Small hiatal hernia. - Acute duodenitis with hemorrhage. Biopsied. Injected. Treated with argon plasma coagulation (APC). Recommendations : - Discharge patient to home. - Full liquid diet today. - Continue present medications. - Use Protonix (pantoprazole) 40 mg PO BID for 12 weeks. - Use sucralfate tablets 1 gram PO QID. My findings are described in the full procedure note, which is enclosed. If I can be of further assistance, please feel free to contact me at . Sincerely, Kj Friend, 08/27/2023 11:57:57 AM This report has been signed electronically.
[2023-08-27 12:00] VITALS: BP 155/89; BP 99/73; PULSE 75; RESP 16; O2SAT 96
[2023-08-27 12:10] VITALS: BP 119/88; BP 155/89; PULSE 82; RESP 16; O2SAT 98
[2023-08-27 12:15] VITALS: BP 122/86; BP 155/89; PULSE 77; RESP 16; TEMP 36.3; O2SAT 99
[2023-08-27 12:45] VITALS: BP 155/89
== END 2023-08-27 12:49 | disposition home or self-care (01) ==
LOC: EN 10:36 → AC 10:37
PROVIDERS: PCP Family Medicine; Referring Provider Internal Medicine Gastroenterology; Visit Provider Internal Medicine Gastroenterology
PROC: 0DJ08ZZ Inspection of Upper Intestinal Tract, Via Natural or Artificial Opening Endoscopic (ICD-10-PCS; CPT 43235; principal; 2023-08-27 11:25)
DX: K29.81 Duodenitis with bleeding (principal); K44.9 Diaphragmatic hernia without obstruction or gangrene; I10 Essential (primary) hypertension; Z80.0 Family history of malignant neoplasm of digestive organs; Z87.891 Personal history of nicotine dependence; K21.9 Gastro-esophageal reflux disease without esophagitis; Z79.899 Other long term (current) drug therapy; K31.A0 Gastric intestinal metaplasia, unspecified; K29.70 Gastritis, unspecified, without bleeding
CPT/HCPCS: 43239; 43255; 88305; J7120; J2405

== ENCOUNTER → 2023-09-21 | Outpatient (CLI) | payer MEDICARE, SELFPAY ==
--- NOTE | 2023-09-21 13:20 | CT_ITS ---
INDICATION: SUSPECTED MALIGNANT NEOPLASM COMPARISON: Abdominal CT 07/23/2023.. A radiation dose optimization technique was used for this scan. Radiation CTDIvol 14.55 Radiation DLP 1418.34 FINDINGS: Contrast enhanced serial CT axial images through the chest, abdomen, and pelvis with coronal and sagittal reformatted series. IV Contrast dosage and agent: Oral T IV Readi-CAT T 100mL Isovue-300 MEDIASTINUM: Distal pulmonary artery branch vessel evaluation is suboptimal secondary to timing of contrast bolus as well as respiratory motion, however, there are no obvious proximal pulmonary artery filling defects. Mediastinum is otherwise unremarkable. AORTA/GREAT VESSELS: No acute thoracoabdominal aortic abnormality. Major abdominal ostia are patent. LUNG PARENCHYMA: No acute pulmonary parenchymal abnormality. PLEURA: No pleural effusion. No pneumothorax. PANCREAS: No peripancreatic fat stranding. BOWEL/MESENTERY: No dilated bowel loops. No significant free fluid. No free air. Colonic diverticulosis without focus of diverticulitis. GALLBLADDER: Dependent cholelithiasis without pericholecystic fat stranding. LIVER/STOMACH: Large mesh stent within the distal stomach. URINARY COLLECTING SYSTEM/ KIDNEYS: No evidence of urinary collecting system obstruction. Multiple bilateral nearly simple fluid attenuating renal lesions, likely renal cysts. APPENDIX: Normal caliber gas containing appendix. ADRENALS: Nodular thickening of the left adrenal gland without definite discrete lesion BONES: Unremarkable for age. CT/CT Chest, Abd, Pel w/Contrast IMPRESSION: Large mesh stent within the distal stomach. No evidence of metastatic disease. No acute abnormality of the chest or abdomen. Distal pulmonary artery branch vessel evaluation is suboptimal secondary to timing of contrast bolus as well as respiratory motion, however, there is no obvious proximal pulmonary embolus. Multiple bilateral nearly simple fluid attenuating renal lesions, likely renal cysts. Recommend comparison with previous older imaging to document long-term stability versus follow-up nonemergent renal ultrasound. Nodular thickening of the left adrenal gland without definite discrete lesion, suggesting possible adrenal hyperplasia. Electronically Signed: Esdras Martinez MD at 4:30 EDT ,
[2023-09-21 13:39] LABS: CREATININE FINGERSTICK 1.4 mg/dL (0.70-1.30)
== END | disposition home or self-care (01) ==
LOC: CT 13:06
PROVIDERS: PCP Family Medicine; Referring Provider Internal Medicine Gastroenterology; Visit Provider Internal Medicine Gastroenterology
DX: R68.89 Other general symptoms and signs (principal)
CPT/HCPCS: 71260; 74177; Q9967

== ENCOUNTER 2024-07-27 08:15 | Day surgery (SDC) | payer MEDICARE, SELFPAY ==
--- NOTE | 2024-07-27 08:27 | PCM.HP.BLA ---
History and Physical Date of Admission: 07/27/24 MARIANA VÁSQUEZ is a 73 M who presents to the office today for follow up. *[facility] hospitalization 07.23.23-07.25.23 for management of adenocarcinoma of duodenum; HAYDEE, leukocytosis, hypokalemia, HTN. History of duodenal carcinoma CT abd/pel 07.23.23 scarring/atelectasis left lung base; hepatic steatosis; suspect tiny gallbladder stone; multiple calcified granulomata of spleen; adrenal hyperplasia prominent on left, metastatic process should be r/o; gastric distention; duodenal dilation; colonic diverticulosis. ? EGD 07.24.23 LA Grade D erosive esophagitis; clear gastric fluid; pyloric stenosis, dilated; duodenal mass, likely malignant, prosthesis placed. No malignancy. H.Pylori + Contact 08.11.23 with h.pylori results; Start quadruple therapy clarithromycin and amoxicillin EGD 08.27.23 small hiatal hernia; stent protruding into stomach from duodenum and through pyloric sphincter with the appearance of ingrowth and appearance of fistula/communication adjacent to stent not previously visualized; acute duodenitis with hemorrhage, APC. ? CT chest/abd/pel 09.22.23 cholelithiasis; large mesh stent in distal stomach; bilaterally renal cysts; nodular thickening of left adrenal gland, adrenal hyperplasia. Contact 10.12.23 recommend referral to [facility] for EUS. [facility] workup: EGD/EUS 01.12.24 irregular Zline 38cm; white nummular lesions of gastric body, ulcerative gastritis and reactive gastropathy; metal stent seen in ampulla/duodenal bulb/first and second duodenum; duodenitis, increased inflammatory cells; pancreatic abnormalities of increased echogenicity and lobularity; pancreatic duct up to 2mm in neck and 1.5cm of body and tail. Antral visualization limited by stent presence. OV 8.16.24 pt reports that he is feeling well overall without GI symptoms of concern at this time. Pt reports regular bm; denies blood in the stool. ROS Const Constitutional: No fatigue, fever(s) or weight change ENT ENT: No difficulty swallowing Gastro GI: No abdominal pain, belching, bloating, change in bowel habits, change in stool character, coffee ground emesis, constipation, cramping, diarrhea, heartburn, difficulty swallowing, feeling full early, excessive flatus, incontinent of stools, Vomiting blood/hematemesis, Blood in stool, loose stools, Black,tarry stools, nausea/dyspepsia, pain with swallowing, vomiting or other Musc Musculoskeletal: Positive for restless legs and leg pain at night; No joint pain Skin Skin: No yellowing of the eye or itchy eyes Neuro Neurology: Positive for restless legs Psych Psychiatric: No anxiety and No depression Endo Endocrine: No fatigue or weight change Aller/Imm Allergy/Immunologic: No itchy eyes Valerio/Lymp Hematologic/Lymphatic: No easy bleeding or easy bruising Exam Const General: cooperative and comfortable Nutritional Appearance: average body habitus and well nourished HENMT Head: normal to inspection Ears: hearing grossly normal bilaterally Nose: external nose normal Face and sinus: normal facial exam Mouth: oral mucosae normal Throat: posterior oropharynx normal Eyes General: appearance normal, both eyes and all related structures Neck Neck: normal visual inspection Chest Chest palpation & inspection: normal inspection of the chest and normal palpation of entire chest wall Resp Effort & Inspection: normal respiratory effort Auscultation: Bilateral: Clear to Auscultation Cardio Palpation: normal PMI Rate: regular rate Rhythm: regular rhythm GI Inspection: normal to inspection Auscultation: normal bowel sounds Percussion: normal to percussion Palpation: no hepatosplenomegaly Skin General: no rashes or lesions noted Neuro General: patient alert Extrem General: normal to inspection Psych Affect: normal affect Assessment and Plan Assessment and Plan (1) Abnormal weight loss: Status: Acute Plan: He has gained all his weight back after having the gastric duodenal stent placed across the pyloric sphincter. He underwent endoscopic ultrasound and no abnormalities were seen in the stomach duodenum or pancreas. We will repeat his upper endoscopy to evaluate the stent and see if it may be amenable to removal. He is okay with this plan. (2) H. pylori infection: Status: Chronic (3) Gastric outlet obstruction: Status: Acute (4) Anemia: Status: Acute Plan: 72 M who presents for follow-up upper endoscopy. He was seen in the emergency room at [facility] with complaints of weight loss, hypotension, and decreased oral intake. Patient's stated that the patient has lost weight over the last 6 months-approximately 50 pounds by their account. Patient did a Cologuard test as an outpatient and got results the day before and they were negative. Patient had blood work done as an outpatient the day before that showed an elevated creatinine and he was directed to go to the emergency room for evaluation. Creatinine was 2.11 in the ER abdominal CT showed possible gastritis and duodenitis or a mass and cholelithiasis. Patient was admitted to [place] [address], he was given IV fluids, and he was seen in consultation by myself. Gastroenterology EGD which showed a duodenal mass with ulceration, frozen sections revealed it to be acute on chronic inflammation. Patient then went the following day for duodenal stent placement for gastric outlet obstruction. He underwent EUS and biopsies of duodenum were negative for malignancy. Findings from egd: The examined esophagus was normal. A small hiatal hernia was present. Stent was seen protruding into the stomach from the duodenum through the pyloric sphincter. The part of the stent in the stomach was patent with some mild debris around the stent. There was the appearance of ingrowth and the stent that had appearance of bleeding stigmata. Biopsies were taken of the ingrowth in the stent and the bleeding was treated with APC and epinephrine injection. There also was the appearance of a fistula or communication adjacent to the stent that was not previously seen prior to the stent being placed. The scope was able to be inserted through the stent and into the second portion of the duodenum. Localized severe inflammation with hemorrhage characterized by congestion (edema), erosions, erythema, friability, granularity, nodularity and confluent ulcerations was found in the duodenal bulb and in the first portion of the duodenum. Biopsies were taken with a cold forceps for histology. Area was successfully injected with 5 mL of a 0.1 mg/mL solution of epinephrine for drug delivery. Coagulation for hemostasis using argon plasma at 0.3 liters/minute and 20 orellana was successful. Estimated blood loss was minimal. Impression: - Normal esophagus. - Small hiatal hernia. - Acute duodenitis with hemorrhage. Biopsied. Injected. Treated with argon plasma coagulation (APC). Recommendation: - Discharge patient to home. - Full liquid diet today. - Continue present medications. - Use Protonix (pantoprazole) 40 mg PO BID for 12 weeks. - Use sucralfate tablets 1 gram PO QID. We will repeat his upper endoscopy after we get the results from his CT scan abdomen pelvis that he got done a week ago. Patient is doing well and is gaining weight. He has no diet restrictions at this time. I have examined the patient and the H&P has been reviewed. There are no clinical changes since date of exam.
[2024-07-27 08:45] VITALS: BP 148/92; PULSE 91; RESP 16; TEMP 36.2; O2SAT 100; BMI 27.6
[2024-07-27 08:50] VITALS: BP 148/92; PULSE 91; RESP 16; TEMP 36.2; O2SAT 100
--- NOTE | 2024-07-27 08:50 | PRE.ANES_ITS ---
ASA Classification* ASA Classification ASA Classification: 2 Assessment & Plan Anesthesia* Anesthesia Assessment Anesthesia Assessment: Discussed sedation and/or anesthesia options, risks, benefits, and alternatives with patient/parents/legal guardian/POA. Questions invited. The patient/parents/legal guardian/POA seems to understand and agrees to proceed with anesthesia plan. Reviewed the physical assessment, medical history, allergy history and patient home medications list prior to surgery/procedure/anesthetic and documented any changes. Performed airway and anesthesia risk assessments. Anesthesia Type Anesthesia Type: MAC (see written pre anesthesia record for full assessment) Anesthesia Focused Assessment* Temperature: 97.2 F Pulse Rate: 91 Blood Pressure: 148/92 Respiratory Rate: 16 Pulse Ox: 100 Airway Assessment Mouth opens: >3 cm Mallampati Score: II Focused Labs Anesthesia Preop lab: CBC WBC 12.4 K/mm3 (4.4-11.0) H 07/30/23 10:27 RBC 3.69 M/mm3 (4.6-6.2) L 07/30/23 10:27 Hgb 10.5 g/dL (13.0-16.5) L 07/30/23 10:27 Hct 33.0 % (40-54) L 07/30/23 10:27 Plt Count 354 K/mm3 (150-450) 07/30/23 10:27 CHEMISTRY Potassium 3.9 mmol/L (3.5-5.1) 07/30/23 10:27 Sodium 138 mmol/L (136-145) 07/30/23 10:27 Magnesium 1.9 mg/dL (1.6-2.6) 07/30/23 10:27 Phosphorus 2.0 mg/dL (2.5-4.9) L 07/30/23 10:27 BUN 21 mg/dL (7-18) H 07/30/23 10:27 Creatinine 1.23 mg/dL (0.70-1.30) 07/30/23 10:27 Glucose 92 mg/dL (74-106) 07/30/23 10:27 COAG Pre-Assessment Diagnosis/Proposed Procedure Planned Operative Procedure(s): EGD Anesthesia History Anesthesia History - director of infection control: Anesthesia History - director of infection control Hx Hospitalization Yes: UNEXPLAINED WEIGHT LOSS 07/21/24 13:42 /ULCER AND MASS IN STOMACH/ NON CANCEROUS Any Problems With Anesthesia No 07/21/24 13:42 Cholinesterase deficiency No 07/21/24 13:42 You/Your Family Experience No 07/21/24 13:42 fever (hyperthermia) with Relationship Recent Exposure to Contagious No 07/27/24 08:45 Disease Does patient have nerve No 07/21/24 13:42 stimulator Patient instructed to have device shut off --Does patient have Pacemaker No 07/27/24 08:45 or ICD? When Was Last Pacemaker Check QUESTION #4 FULL TEXT: You/Your Family Experience fever (hyperthermia) with Anesthesia Last Oral Intake Last Oral intake: Last Oral Intake NPO since 21:30 07/27/24 08:45 Meds taken in AM with sips of No 07/27/24 08:45 water? Meds patient instructed to take am of surgery PONV PONV - director of infection control: PONV - director of infection control Female No 07/21/24 13:42 HX of Motion Sickness No 07/21/24 13:42 HX of N/V After Surgery No 07/21/24 13:42 Non-Smoker Yes 07/21/24 13:42 Duration of Surgery greater No 07/21/24 13:42 than 60 minutes Number of Risk Factors 1 07/21/24 13:42 PONV Score Low Risk 07/21/24 13:42 Height & Weight Height & Weight: Anesthesia: Height & Weight Height 6 ft 1 in 07/27/24 08:45 Weight: 95 kg 07/27/24 08:45 Body Mass Index (BMI) 27.6 07/27/24 08:45 Respiratory Assessment Respiratory Assessment - director of infection control: Respiratory Tract Infection Hx - director of infection control Hx Respiratory Tract Infection No 07/21/24 13:42 STOP Sleep Apnea STOP Sleep Apnea - director of infection control: STOP Sleep Apnea - director of infection control Hx Hypertension Yes: CONTROLLED WITH MED 07/21/24 13:42 Hx Sleep Apnea No 07/21/24 13:42 CPAP Yes 07/21/24 13:42 BIPAP Do you snore loudly (louder No 07/21/24 13:42 than talking or can be heard Do you often feel tired/ No 07/21/24 13:42 fatigued/ sleepy during daytime? Has anyone observed you stop No 07/21/24 13:42 breathing during sleep? STOP Results Negative 07/21/24 13:42 QUESTION #5 FULL TEXT : Do you snore loudly (louder than talking or can be heard through closed doors)? Tobacco Use History Tobacco Use History - director of infection control: Tobacco Use History - director of infection control Tobacco Use Smoking Status Former smoker 07/21/24 13:42 Hx Tobacco Use No 07/21/24 13:42 Years Smoking Packs Smoked per Day Smoking Cessation Date was Yes - quit smoking within 15 07/21/24 13:42 within the last 15 years years Hx Smoking Cessation Date 07/24/23 07/21/24 13:42 Hx Smoking Cessation No 07/21/24 13:42 Counseling Hematologic Medial History Hematologic Hx - director of infection control: Hematologic Medical Hx - carrier associate Hx of Blood Transfusion No 07/21/24 13:42 Hx of Transfusion in last 3 No 07/21/24 13:42 Months Date of Last Transfusion (if within last 3 months) Ever experience any problems No 07/21/24 13:42 with transfusion(s)? Specify any problems Hx of Preganancy in last 3 N/A 07/21/24 13:42 Months Nurse Filling Out Transfusion NBUCHER 07/21/24 13:42 & Questions: Date: 07/21/24 07/21/24 13:42 Time: 13:46 07/21/24 13:42 Patient unable to answer at this time (ie. confused, unrespo /Reproduction History /Reproductive History - director of infection control: /Reproductive Hx- director of infection control Hx Now Gestational Age (in weeks): EDC: Hx Hx Para Hx Section SAB No 07/21/24 13:42 Active Medications Active Medications: Current Medications Generic Name Dose Route Start Last Admin Trade Name Freq PRN Reason Stop Dose Admin Lactated Ringer's 1,000 mls @ 15 mls/hr 07/27/24 08:45 IV .Q48H DELLA PFSH Medical History Wears glasses Alcohol use Low iron Restless legs Back pain History of ulceration Gastric reflux Former smoker History of stress test Gammopathy H. pylori infection Anemia Gastric outlet obstruction Mass of duodenum Wears dentures Hypertension Home Medications ?Medication ?Instructions ?Recorded ?Last Taken ?Type losartan 100 1 tab PO DAILY 08/25/23 07/26/24 History mg-hydrochlorothiazide 12.5 mg tablet pantoprazole 40 mg tablet,delayed 40 mg PO Q12H 12 weeks #168 tabs 08/27/23 07/27/24 Rx release sucralfate 1 gram tablet 1 g PO Q6 #336 TABLETS 07/04/24 07/27/24 Rx coenzyme Q10 100 mg capsule 100 mg PO DAILY 07/08/24 07/26/24 History rosuvastatin 10 mg tablet 10 mg PO DAILY 07/08/24 07/26/24 History Allergy/AdvReac Type Severity Reaction Status Date / Time No Known Allergies Allergy Verified 07/27/24 08:44 Family History Mother CVA (cerebral vascular accident) Father Colon cancer Heart disease Brother Prostate cancer Surgical History Hx of esophagogastroduodenoscopy History of foot surgery Social History household members: spouse current occupational status: retired current occupational exposures/hazards: No Smoking Status: Former smoker how long ago did patient quit smokin/4ppd x 40yrs details: used to drink on rare/special occasions, not any more substance use type: does not use Review of Systems (Anesthesia) ROS Narrative System reviewed and no additional complaints, except as documented.
[2024-07-27] MEDS: 0.9% Normal Saline (1000mL) 1,000 ML 15 ML IV (08:52)
--- NOTE | 2024-07-27 09:15 | EGD_PTH ---
PATIENT: NICHOLAS VÁSQUEZ LOC: EN U#:[id number] AGE/SX: 73/M ROOM: RE07/27/[address]: Dr. Kj Stone DO : 1950 BED: DIS: 07/27/2024 SPEC #: [id number] RECD: 07/27/24 13:43 STATUS: NANCY SHIRLEY #: [id number] MELA: 07/27/24 09:[address]: Kj Stone DEPT: SURGICAL PATHOLOGY RECD BY: Alejandro Enrique ENTERED: 07/27/24 14:23 SP TYPE: EGD BIOPSY OT DR: Dr. Terrance Cee DO Tissues: Duodenum, NOS Procedures: Special Stain Group I Surgery Specimen Level IV GMS Stain (control) HEADER OPERATION: EGD with biopsy, attempted stent removal PRE-OP DIAGNOSIS: Weight loss, hpylori, anemia, gastric outlet obstruction TISSUE SUBMITTED: Duodenal stricture MICROSCOPIC DIAGNOSIS Duodenal stricture, biopsy: Fragments of gastric mucosa with mild chronic inflammation. Food debris with fungal organisms. See comment. Stef 07/28/2024 COMMENT The lesion may represent gastric metaplasia. Clinical correlation is suggested. GMS stain with matched control was used in the evaluation of this case. MICROSCOPIC DESCRIPTION Slides are reviewed. GROSS DESCRIPTION Received in fixative is one container labeled with the patient's name and designated Duodenal stricture. The specimen consists of multiple irregular fragments of light tee soft tissue that in aggregate measure 0.5 x 0.4 x 0.1 cm. The specimen is totally submitted in one cassette. 07/27/2024 TC:3 CPT:85941,03440
[2024-07-27 09:45] VITALS: BP 148/92; BP 98/72; PULSE 76; RESP 16; TEMP 36.7; O2SAT 94
--- NOTE | 2024-07-27 09:49 | OP.EGD_ITS ---
Patient Name: Andrea Welch Procedure Date: 07/27/2024 8:56 AM Date of : 1950 Age: 73 Procedure: Upper GI endoscopy Indications: Epigastric abdominal pain Providers: Kj Stone DO Medicines: Monitored Anesthesia Care Patient Profile: This is a 73 year old male. Refer to note in patient chart for documentation of history and physical. Patient has symptoms of acute epigastric abdominal pain, chronic dyspepsia and chronic nausea. Complications: No immediate complications. Procedure: Pre-Anesthesia Assessment: - Prior to the procedure, a History and Physical was performed, and patient medications and allergies were reviewed. The patient is competent. The risks and benefits of the procedure and the sedation options and risks were discussed with the patient. All questions were answered and informed consent was obtained. Patient identification and proposed procedure were verified by the physician in the pre-procedure area. Mental Status Examination: alert and oriented. Airway Examination: normal oropharyngeal airway and neck mobility. Respiratory Examination: clear to auscultation. CV Examination: normal. Prophylactic Antibiotics: The patient does not require prophylactic antibiotics. Prior Anticoagulants: The patient has taken no anticoagulant or antiplatelet agents except for NSAID medication. ASA Grade Assessment: II - A patient with mild systemic disease. After reviewing the risks and benefits, the patient was deemed in satisfactory condition to undergo the procedure. The anesthesia plan was to use monitored anesthesia care (MAC). Immediately prior to administration of medications, the patient was re-assessed for adequacy to receive sedatives. The heart rate, respiratory rate, oxygen saturations, blood pressure, adequacy of pulmonary ventilation, and response to care were monitored throughout the procedure. The physical status of the patient was re-assessed after the procedure. After obtaining informed consent, the endoscope was passed under direct vision. Throughout the procedure, the patient's blood pressure, pulse, and oxygen saturations were monitored continuously. The Endoscope was introduced through the mouth, and advanced to the second part of duodenum. The upper GI endoscopy was accomplished without difficulty. The patient tolerated the procedure well. Scope In: 9:11:21 AM Scope Out: 9:40:07 AM Total Procedure Duration Time 0 hours 28 minutes 46 seconds Findings: The examined esophagus was normal. One non-bleeding linear gastric ulcer with no stigmata of bleeding was found in the gastric antrum. The lesion was 5 mm in largest dimension. An acquired benign-appearing, intrinsic severe stenosis was found in the duodenal bulb and was traversed. Biopsies were taken with a cold forceps for histology. Verification of patient identification for the specimen was done. Estimated blood loss was minimal. A previously placed metal stent was seen in the duodenal bulb and in the first portion of the duodenum. Impression: - Normal esophagus. - Non-bleeding gastric ulcer with no stigmata of bleeding. - Acquired duodenal stenosis. Biopsied. - Metal stent in the duodenum. Recommendation: - Discharge patient to home. - Resume previous diet. - Continue present medications. - Await pathology results. Procedure Code(s): --- Professional --- 59683, Esophagogastroduodenoscopy, flexible, transoral; with biopsy, single or multiple CPT copyright 2021 [employer] [place] [employer]. All rights reserved. The codes documented in this report are preliminary and upon hcc coders review may be revised to meet current compliance requirements. Kj Stone DO 07/27/2024 9:48:30 AM This report has been signed electronically. Number of Addenda: 0 Note Initiated On: 07/27/2024 8:56 AM
--- NOTE | 2024-07-27 09:49 | PCM.POST.ANE ---
Anesthesia: Postop Eval I Current Vital Signs Temperature: 98.1 F Pulse Rate: 78 Blood Pressure: 98/72 Respiratory Rate: 16 Pulse Ox: 94 Oxygen Delivery Method: Room Air Assessment Airway patent: Yes Spontaneous unlabored respirations: Yes Mental status: Asleep nausea: No Vomiting: No Anesthesia Complication: No Fluid Hydration Crystalloid volume administer (ml): 800 Total IV fluid infused: 800 Progress Note Anesthesia document: Postop Eval 1 completed: Yes
[2024-07-27 09:50] VITALS: BP 105/80; BP 148/92; BP 98/72; PULSE 77; PULSE 78; RESP 16; TEMP 36.7; O2SAT 94
[2024-07-27 09:55] VITALS: BP 115/82; BP 148/92; PULSE 79; RESP 16; TEMP 36.7; O2SAT 96
--- NOTE | 2024-07-27 10:05 | PCM.POSTANE2 ---
Anesthesia Postop Eval I Sum Postop Eval Completion status Anesthesia document: Postop Eval 1 completed: Yes Anesthesia Postop Eval I Summary Anesthesia Postop Eval I Summary: Anesthesia Postop Eval I: Assessment Summary Airway patent Yes 07/27/24 09:50 [email or web address] Spontaneous unlabored Yes 07/27/24 09:50 [email or web address] respirations Mental status Asleep 07/27/24 09:50 [email or web address] nausea No 07/27/24 09:50 [email or web address] Vomiting No 07/27/24 09:50 [email or web address] Anesthesia Postop Eval I: Fluid Summary Crystalloid volume administer 800 07/27/24 09:50 [email or web address] (ml) Colloids volume administered ( ml) Blood Product volume administered (ml) Total IV fluid infused 800 07/27/24 09:50 [email or web address] Anesthesia Postop Eval I: Summary Notes Anesthesia Complication No 07/27/24 09:50 [email or web address] Anesthesia Complication Comment: Post-operative progress note Anesthesia: Postop Eval II Evaluation Mental status: Awake Pain Level: 0 nausea: No Vomiting: No
[2024-07-27 10:16] VITALS: BP 148/92
== END 2024-07-27 10:25 | disposition home or self-care (01) ==
LOC: EN 08:17 → AC 08:21
PROVIDERS: PCP Family Medicine; Referring Provider Family Medicine; Visit Provider Internal Medicine Gastroenterology
PROC: 0DJ08ZZ Inspection of Upper Intestinal Tract, Via Natural or Artificial Opening Endoscopic (ICD-10-PCS; CPT 43235; principal; 2024-07-27 09:10)
DX: R63.4 Abnormal weight loss (principal); K31.5 Obstruction of duodenum; K25.9 Gastric ulcer, unspecified as acute or chronic, without hemorrhage or perforation; I10 Essential (primary) hypertension; A04.8 Other specified bacterial intestinal infections; K31.1 Adult hypertrophic pyloric stenosis; D64.9 Anemia, unspecified
CPT/HCPCS: 43239; 88305; 88312; J2405